=== PATIENT | female | born 1935 | race Caucasian/White ===

== ENCOUNTER 2016-09-25 10:31 | Inpatient (IN) ==
--- NOTE | 2016-09-25 11:04 | Emergency Department Note ---
Disposition Clinical Impression: Symptomatic anemia Disposition: Admitted As Inpatient Condition: Good Referrals: Jeffery Pastor MD [Primary Care Provider] - Forms: ED Satisfaction Letter Time of Disposition: 12:35 (dr padron obsv) Lower Extremity Injury HPI - General Chief Complaint: ED Extremity Injury, Lower Stated Complaint: right leg pain Time Seen by Provider: 09/25/16 10:38 Source: patient, EMS Mode of arrival: ambulatory Limitations: no limitations Nursing Notes Reviewed: Yes Vital Signs Reviewed: Yes - History of Present Illness HPI Narrative: Patient was seen 2 months ago when she tripped and fell and injured her leg she has had a large hematoma the leg during this period time she has actually been seen in the ER 3 times seen by the family physician 3 times and she has had CAT scans x-rays and Dopplers done all of which the negative she comes in today stating that she is short of breath tired and weak has no energy is having pain in the thigh has trouble weightbearing states it is swollen edematous with black and blue from the groin down Pt Subjective Complaint: thigh injury, leg injury Injury location: Left Leg, Left thigh Onset (ago): month(s) (2) Mechanism of Injury: fall Context: walking Place: home Pain Severity: moderate Pain Scale: 4 Improves with: nothing Worsens with: nothing Associated symptoms: Reports: able to partially bear weight, other (Large leg hematoma) - Related Data Home Medications Medication Instructions Recorded Confirmed Atenolol [Tenormin] 50 mg PO DAILY 09/25/16 09/25/16 Cholestyramine 4 gm PO BID 09/25/16 09/25/16 Famotidine [Heartburn Prevention] 20 mg PO BID 09/25/16 09/25/16 Flonase 50 mcg PO DAILY 09/25/16 09/25/16 Lisinopril [Zestril] 40 mg PO DAILY 09/25/16 09/25/16 Lovastatin [Altoprev] 40 mg PO HS 09/25/16 09/25/16 Omeprazole 40 mg PO DAILY 09/25/16 09/25/16 Tramadol HCl [Ultram] 50 mg PO QID PRN 09/25/16 09/25/16 Previous Rx's Medication Instructions Recorded Hydrocodone/Acetaminophen [[place] 1 tab PO QID PRN #12 tab 07/13/16 5-325 Tablet] Allergies Allergy/AdvReac Type Severity Reaction Status Date / Time codeine Allergy Rash Verified 07/13/16 14:42 Penicillins [PCN] Allergy Rash Verified 07/13/16 14:42 Sulfa (Sulfonamide Allergy Rash Verified 07/13/16 14:42 Antibiotics) All systems ED: reviewed and negative except as stated. Constitutional: Reports: weakness. Denies: fever, chills Eyes: Denies: vision change ENT ED: Denies: ear pain, congestion Cardiovascular: Denies: chest pain Respiratory: Denies: cough, dyspnea Gastrointestinal: Denies: abdominal pain, nausea Genitourinary: Denies: urgency, dysuria Musculoskeletal: Denies: back pain, neck pain Integumentary: Denies: rash Neurological: Reports: weakness. Denies: headache Psychiatric: Denies: anxiety Endocrine: Reports: fatigue Hematological/Lymphatic: Reports: easy bleeding, easy bruising Allergic/Immunologic: Denies: facial swelling Past Medical History - Past Medical History Attestation: Yes The following information was validated with the patient. Source: patient, old records reviewed, nursing notes reviewed Medical history: Reports: arthritis, GERD, hypertension Psychiatric history: Reports: no psych history - Social History Smoking Status: Former smoker Smokeless Tobacco Status: No Alcohol use: Reports: none Drug use: Reports: none Physical Exam - General Limitations: no limitations General appearance: alert, in no apparent distress - Head Head exam: atraumatic, normocephalic, normal inspection - Eye Eye exam: Present: normal appearance, PERRL, EOMI - ENT ENT exam: normal exam, normal oropharynx, mucous membranes moist, normal external ear exam - Neck Neck exam: Present: normal inspection, full ROM, trachea midline - Chest Chest inspection: Present: normal inspection, symmetric chest wall rise - Respiratory Respiratory exam: Present: normal lung sounds bilaterally - Cardiovascular Cardiovascular exam: Present: regular rate, normal rhythm, normal heart sounds - Abdominal Exam Abdominal exam: Present: soft, Non-Tender, normal bowel sounds - Expanded Upper Extremity Exam Shoulder exam: Present: normal inspection, full ROM Arm exam: Present: normal inspection, full ROM Elbow exam: Present: normal inspection, full ROM Forearm/Wrist exam: Present: normal inspection, full ROM Hand exam: Present: normal inspection, full ROM Vascular exam: Normal: capillary refill, radial pulse - Expanded Lower Extremity Exam Hip/Pelvis exam: Present: normal inspection (Of the left lower extremity there is no bruising or ecchymosis noted with the exception is 20 over the bruising above the ankle on the left otherwise all bruising is noted to the right leg), full ROM Upper leg exam: Present: normal inspection, full ROM 1 - Rectal bluish discoloration of the entire extremity with edema in comparison to the left lower extremity +2 dorsal pedal posterior tibial pulses full range of motion pitting edema lower Knee exam: Present: normal inspection, full ROM Lower leg exam: Present: normal inspection, full ROM Ankle exam: Present: normal inspection, full ROM Foot/toe exam: Present: normal inspection, full ROM Neurovascular/Tendon exam: Present: normal capillary refill, normal fine/light touch. Absent: motor deficit, sensory deficit, tendon deficit Gait: observed and normal - Back Exam Back exam: Present: normal inspection, full ROM - Neurological Exam Neurological exam: Present: alert, oriented X3, CN II-XII intact - Psychiatric Psychiatric exam: Present: normal affect, normal mood - Skin Skin exam: Present: warm, dry, intact, normal color Course Course Narrative: She was seen and examined laboratory data noted patient was then discussed with family as well as just Pastor as result of patient being symptomatic anemia will be admitted patient be admitted for observation to a surgeon - Reevaluation(s) Reevaluation #1: With cancer who has agreed for admission for observation for transfusion Vital Signs Temperature 98.1 F 09/25/16 10:33 Pulse Rate 64 09/25/16 10:33 Respiratory Rate 18 09/25/16 10:33 Blood Pressure 152/83 09/25/16 10:33 O2 Sat by Pulse Oximetry 99 09/25/16 10:33 Temperature 98.1 F 09/25/16 10:35 Pulse Rate 64 09/25/16 10:35 Respiratory Rate 18 09/25/16 10:35 Blood Pressure 152/83 09/25/16 10:35 O2 Sat by Pulse Oximetry 99 09/25/16 10:35 Oxygen Delivery Oxygen Delivery Room Air Extremity Injury, Lower - MDM Narrative Medical decision making narrative: internal bleeding in the thig with anemia - Lab Data Result diagrams: 09/25/16 11:17 09/25/16 11:17 Lab Results 09/25/16 09/25/16 09/25/16 Range/Units 11:17 11:17 11:17 WBC 7.4 (4.3-11.1) K/mcL RBC 2.10 L (3.82-4.97) M/mcL Hgb 7.8 L (11.5-15.4) g/dL Hct 24.0 L (35.3-44.9) % MCV 114.3 H (83.0-100.0) fL MCH 37.1 H (28.0-33.3) pg MCHC 32.5 (31.6-35.5) g/dL RDW 17.0 H (11.5-14.5) % Plt Count 202 (140-400) K/mcL MPV 10.4 (9.4-12.4) fL Immature Gran % 0.5 (0-4) % Seg Neutrophils % 70.9 % Lymphocytes % 15.9 % Monocytes % 11.4 % Eosinophils % 0.9 % Basophils % 0.4 % Neutrophils # 5.3 (1.6-8.9) K/mcL Lymphocytes # 1.2 (0.6-4.6) K/mcL Monocytes # 0.9 (0.0-1.3) K/mcL Eosinophils # 0.1 (0.0-0.6) K/mcL Basophils # 0.0 (0.0-0.2) K/mcL Platelet Estimate Normal (Normal) Anisocytosis 1+ A (Not Present) Macrocytosis Present A (Not Present) PT 10.7 (9.4-12.1) Seconds INR 1.0 APTT 27.0 (26.0-36.0) Seconds Sodium 142 (136-145) mEq/L Potassium 4.1 (3.5-4.5) mEq/L Chloride 112 H (98-109) mEq/L Carbon Dioxide 23 (19-29) mEq/L BUN 15 (7-20) mg/dL Creatinine 0.66 (0.57-1.11) mg/dL Est GFR ( Amer) > 60 (> 60) Est GFR (Non-Af Amer) > 60 (> 60) BUN/Creatinine Ratio 23 (6-26) Glucose 95 (70-99) mg/dL Calculated Osmolality 295 (280-300) Calcium 8.9 (8.6-10.8) mg/dL Critical Care Time Critical Care Time: No
[2016-09-25 11:23] LABS: Basophils % 0.4 %; Eosinophils # 0.1 K/mcL (0.0-0.6); Eosinophils % 0.9 %; Hemoglobin 7.8 g/dL (11.5-15.4); Immature Granulocytes % 0.5 % (0-4); Lymphocytes # 1.2 K/mcL (0.6-4.6); Lymphocytes % 15.9 %; Mean Corpuscular HGB Conc 32.5 g/dL (31.6-35.5); Mean Corpuscular Hemoglobin 37.1 pg (28.0-33.3); Mean Corpuscular Volume 114.3 fL (83.0-100.0); Mean Platelet Volume 10.4 fL (9.4-12.4); Monocytes # 0.9 K/mcL (0.0-1.3); Monocytes % 11.4 %; Neutrophils # 5.3 K/mcL (1.6-8.9); Platelet Count 202 K/mcL (140-400); Segmented Neutrophils % 70.9 %
[2016-09-25 11:30] LABS: Prothrombin Time 10.7 Seconds (9.4-12.1)
[2016-09-25 11:37] LABS: BUN/Creatinine Ratio 23 (6-26); Blood Urea Nitrogen 15 mg/dL (7-20); Calcium 8.9 mg/dL (8.6-10.8); Carbon Dioxide 23 mEq/L (19-29); Chloride 112 mEq/L (98-109); Glucose 95 mg/dL (70-99); Osmolality,Calculated 295 (280-300); Potassium 4.1 mEq/L (3.5-4.5); Sodium 142 mEq/L (136-145); eGFR For African Americans > 60 (> 60); eGFR For Non-African Americans > 60 (> 60)
[2016-09-25 11:43] LABS: Anisocytosis 1+ (Not Present); Macrocytosis Present (Not Present); Platelet Estimate Normal (Normal)
[2016-09-25] MEDS ORDERED: Naloxone 0.4 MG/ML INJ IVP PRN (13:22)
[2016-09-25] MEDS: 0.9 % Sodium Chloride 1,000 ML IVC SCH (14:05)
[2016-09-25] MEDS: Furosemide 20 MG/2 ML VIAL IVP SCH ×2 (18:08→22:34)
[2016-09-25] MEDS ORDERED: Furosemide 20 MG/2 ML VIAL IVP SCH (21:00)
[2016-09-25] MEDS: Cholestyramine 4 GM POWD.PACK PO SCH (22:34)
[2016-09-25] MEDS: *HR* HYDROcodone/Acet 5/325 mg TABLET PO PRN (22:41)
[2016-09-26] MEDS: 0.9 % Sodium Chloride 1,000 ML IVC SCH (05:47)
[2016-09-26 07:37] LABS: Basophils % 0.5 %; Eosinophils # 0.2 K/mcL (0.0-0.6); Eosinophils % 2.7 %; Hematocrit 26.4 % (35.3-44.9); Hemoglobin 8.7 g/dL (11.5-15.4); Immature Granulocytes % 0.5 % (0-4); Lymphocytes # 1.8 K/mcL (0.6-4.6); Mean Corpuscular Hemoglobin 36.1 pg (28.0-33.3); Mean Corpuscular Volume 109.5 fL (83.0-100.0); Mean Platelet Volume 10.5 fL (9.4-12.4); Monocytes # 0.8 K/mcL (0.0-1.3); Monocytes % 12.8 %; Neutrophils # 3.2 K/mcL (1.6-8.9); Platelet Count 191 K/mcL (140-400); Red Blood Count 2.41 M/mcL (3.82-4.97); Red Cell Distribution Width 18.8 % (11.5-14.5); Segmented Neutrophils % 53.5 %
[2016-09-26 07:50] LABS: Activated Partial Thrombo Time 28.2 Seconds (26.0-36.0)
[2016-09-26] MEDS: *HR* HYDROcodone/Acet 5/325 mg TABLET PO PRN ×2 (08:30→14:31)
[2016-09-26 08:58] LABS: BUN/Creatinine Ratio 16 (6-26); Blood Urea Nitrogen 10 mg/dL (7-20); Calcium 9.2 mg/dL (8.6-10.8); Carbon Dioxide 26 mEq/L (19-29); Chloride 109 mEq/L (98-109); Glucose 102 mg/dL (70-99); Osmolality,Calculated 293 (280-300); Potassium 4.1 mEq/L (3.5-4.5); Sodium 142 mEq/L (136-145); eGFR For African Americans > 60 (> 60); eGFR For Non-African Americans > 60 (> 60)
[2016-09-26] MEDS ORDERED: *HR* Promethazine 25 MG/ML VIAL IVP PRN (09:19)
[2016-09-26] MEDS: *HR* Morphine 2 MG/ML SYRINGE IVP PRN ×2 (09:39→16:26)
[2016-09-26] MEDS: PredniSONE 20 MG TABLET PO SCH ×2 (09:59→16:37)
[2016-09-26] MEDS: Lisinopril 20 MG TABLET PO SCH (09:59)
[2016-09-26] MEDS: Cholestyramine 4 GM POWD.PACK PO SCH ×3 (10:01→21:46)
[2016-09-26] MEDS: Ketorolac 30 MG/ML VIAL IVP SCH ×2 (11:50→17:40)
--- NOTE | 2016-09-26 12:42 | Internal Med History&Physical ---
Date of Encounter: 09/26/16 Time of Encounter: 12:26 Assessment and Plan (1) Intractable pain Current visit: Yes Status: Acute Pain was not controlled with oral medication no [place] or tramadol. Morphine had to be ordered every 4 hours as needed for pain that does not control we might have to increase the frequency. Also on Toradol IV. Prednisone orally will change her from observation to inpatient admission follow-up on the rehabilitation consultation (2) Symptomatic anemia Current visit: Yes Status: Acute Unclear why her hemoglobin was below 8. Received one unit of packed red blood cells and her hemoglobin came up to 8.7 but there is a concern she might be bleeding into that time to repeat CBC, her INR was okay. (3) Hypertension Current visit: Yes Status: Acute Blood pressure higher with pain went up to 202/83 continue the clonidine Lasix lisinopril. Qualifiers: Hypertension type: essential hypertension Qualified Code(s): I10 - Essential (primary) hypertension (4) Arthritis Current visit: Yes Status: Chronic Significant knee pain bilaterally improving also with the Toradol (5) Thigh injury Current visit: Yes Status: Acute Right thigh is bruised and swollen continue treat pain Qualifiers: Encounter type: subsequent encounter Laterality: right Qualified Code(s) : S79.921D - Unspecified injury of right thigh, subsequent encounter Internal Medicine - H&P: HPI Chief complaint: Severe right leg pain Admitted From: Emergency Dept Plans for Post Hospital Care: Transfer Inp Rehab Fac History of present illness: Ms. Joseph is a 80 year old female with a history of fall couple months ago and right hip pain and bruising. Several visits to the emergency room and the doctor's office for patient. Family at after the initial fall they did x-rays that show fracture about 2-3 weeks later she started having a lot of bruising and swelling. She was told that it was because she bled deeply and it take this long for the blood to reach the surface. She was able to walk the dog and regular activity before she fell. Since the fall she is mainly had these walker. Yesterday morning when she got up she could not bear weight on that right leg. So painful it was more than a 10 out 10. He came in the emergency room and was admitted for intractable pain and for symptomatic anemia. She sees Dr. Pastor who is given her tramadol past for chronic pain. Initially tramadol and [place] was ordered but these do not control the pain her blood stem from 10. I independently write for Toradol IV morphine every 4 hours when necessary pain and prednisone 20 mg by mouth twice a day. This regimen she reports the pain went down to a 7 out of 10 for a brief period of time. Blood pressure did go up to 202/83 at the time she is complaining of severe pain. He believes it is easing up and would like to stay on this regimen to see if she can become more ambulatory. Currently she cannot bear weight without the IV morphine. He continues to ease up with the rectus regimen and she is willing to do rehabilitation. I discussed with her about compartmental syndrome, she reports with this regimen the tingling has improved though she did like to hold off on being transferred to [facility] unless she gets significantly worse. Her fatigue seemed to improve steadily with 1 unit of packed red blood cells that brought her hemoglobin from 7.8 up to 8.7. I stressed with bed management. She has also had weakness fatigue headache dizziness nausea physical constipated which her symptoms are slightly improved. Chest pain shortness breath vomiting diarrhea abdominal plain she has not noticed any blood rest of the review of systems negative suction mention having a slight right hearing loss which is chronic. Her questions addressed her concerns. We will change her from observation and in patient status. Discussed repeating a Doppler that she had one a week ago and she is not swelling in the ankles source less likely be a blood clot. The Doppler week ago was negative. Past Med Surg Social Fam HX - Past Medical History Medical history: arthritis (Worse in the bilateral knees), GERD, hypertension, other (IBS, thigh injury, anemia) Psychiatric history: no psych history - Past Surgical History Surgical History: appendectomy, cholecystectomy, KELIN/BSO, other (Bladder repair , hiatal hernia repair, lumbar laminectomy, colonoscopy) - Social History Smoking Status: Former smoker Smokeless Tobacco Status: No Alcohol use: occasionally (She reports having a glass of wine every quarter, explained my concerns) Drug use: other (Coffee 2 cups a dayBecause caffeine is a stimulant and makes one feel a boost of energy by tapping into ones reserve energy, it can lead to anxiety and panic attacks. When used routiely, it interferes with deep sleep, so the reserve energy isn't being replaced effectively which leads to tiredness , depression, higher risk of infection. I recommend patients gives up daily use. ) Current living situation: Home - Independent Activity Level: Uses cane/walker - Family History Mother Living Status: (Kidney issue) Father Living Status: (Unsure reason) Internal Medicine - H&P: Meds Hydrocodone/Acetaminophen [[place] 5-325 Tablet] 1 tab PO QID PRN #12 tab [Rx] Atenolol [Tenormin] 50 mg PO DAILY 09/25/16 [History] Cholestyramine 4 gm PO BID 09/25/16 [History] Famotidine [Heartburn Prevention] 20 mg PO BID 09/25/16 [History] Flonase 50 mcg PO DAILY 09/25/16 [History] Lisinopril [Zestril] 40 mg PO DAILY 09/25/16 [History] Lovastatin [Altoprev] 40 mg PO HS 09/25/16 [History] Omeprazole 40 mg PO DAILY 09/25/16 [History] Tramadol HCl [Ultram] 50 mg PO QID PRN 09/25/16 [History] Allergies codeine Allergy (Verified 07/13/16 14:42) Rash Penicillins [PCN] Allergy (Verified 07/13/16 14:42) Rash Sulfa (Sulfonamide Antibiotics) Allergy (Verified 07/13/16 14:42) Rash All Systems PM: A 10-system review of systems was performed and is negative for pertinent findings except as documented above in the HPI. - Constitutional Vitals: Temp Pulse Resp BP Pulse Ox 98.4 F 72 16 202/83 97 09/26/16 10:19 09/26/16 10:19 09/26/16 10:19 09/26/16 10:19 09/26/16 10:19 - Head Head exam: Present: atraumatic, normocephalic - Eye Eye exam: Present: PERRL, conjuntiva pink, sclera anicteric Pupils: Present: PERRL - Neck Neck exam general surgery: Present: supple, trachea midline. Absent: lymphadenopathy - Respiratory Respiratory exam: Present: CTAB. Absent: accessory muscle use, rales, rhonchi, wheezes - Cardiovascular Cardiovascular exam: Present: RRR, +S1, +S2. Absent: diastolic murmur, gallop, rubs, systolic murmur - GI/Abdominal GI/Abdominal exam: Present: normal bowel sounds, soft, no peritoneal signs. Absent: distended, tenderness - Extremities Exam Extremities exam: Absent: cyanotic, pedal edema Additional comments: Right lower extremity has significant bruising from the hip only down to the physician her thigh was tight around the bruising area. Ankle was not swollen there was no redness or pus, she had a pulse by Doppler. She reports normal sensation - Neurological Exam Neurological exam: Present: CN II-XII intact, oriented X3, no focal deficits. Absent: facial droop, speech deficit - Skin Skin exam: Present: dry, intact Internal Med - H&P Results - Labs CBC & Chem 7: 09/26/16 07:23 09/26/16 07:23 Labs: Short CBC 09/26/16 Range/Units 07:23 WBC 6.0 (4.3-11.1) K/mcL Hgb 8.7 L (11.5-15.4) g/dL Hct 26.4 L (35.3-44.9) % Plt Count 191 (140-400) K/mcL Neutrophils # 3.2 (1.6-8.9) K/mcL BMP 09/26/16 07:23 Sodium 142 Potassium 4.1 Chloride 109 Carbon Dioxide 26 BUN 10 Creatinine 0.63 Glucose 102 H Calcium 9.2
[2016-09-26 13:44] LABS: Folate 13.5 ng/mL (7.0-31.4)
[2016-09-26] MEDS: Fluticasone Propionate Nasal 50 MCG/SPRAY BOTTLE NS SCH (15:14)
[2016-09-26] MEDS ORDERED: Ketorolac 30 MG/ML VIAL IVP SCH (16:00)
[2016-09-26] MEDS ORDERED: *HR* LORazepam 2 MG/ML VIAL IVP PRN (17:32)
[2016-09-26] MEDS: *HR* LORazepam 2 MG/ML VIAL IVP PRN (21:49)
[2016-09-27] MEDS: Ketorolac 30 MG/ML VIAL IVP SCH ×3 (00:45→18:44)
[2016-09-27 06:53] LABS: Basophils % 0.1 %; Hematocrit 22.4 % (35.3-44.9); Hemoglobin 7.5 g/dL (11.5-15.4); Immature Granulocytes % 0.6 % (0-4); Lymphocytes % 15.9 %; Mean Corpuscular HGB Conc 33.5 g/dL (31.6-35.5); Mean Corpuscular Hemoglobin 36.6 pg (28.0-33.3); Mean Corpuscular Volume 109.3 fL (83.0-100.0); Monocytes % 10.8 %; Neutrophils # 6.6 K/mcL (1.6-8.9); Platelet Count 182 K/mcL (140-400); Red Blood Count 2.05 M/mcL (3.82-4.97); Red Cell Distribution Width 18.1 % (11.5-14.5); Segmented Neutrophils % 72.6 %
[2016-09-27 06:55] LABS: Lymphocytes # 1.5 K/mcL (0.6-4.6)
[2016-09-27 07:05] LABS: BUN/Creatinine Ratio 21 (6-26); Blood Urea Nitrogen 14 mg/dL (7-20); Calcium 9.1 mg/dL (8.6-10.8); Carbon Dioxide 23 mEq/L (19-29); Chloride 110 mEq/L (98-109); Glucose 133 mg/dL (70-99); Osmolality,Calculated 292 (280-300); Potassium 4.4 mEq/L (3.5-4.5); Sodium 140 mEq/L (136-145); eGFR For African Americans > 60 (> 60); eGFR For Non-African Americans > 60 (> 60)
[2016-09-27] MEDS: PredniSONE 20 MG TABLET PO SCH ×2 (08:54→18:56)
[2016-09-27] MEDS: Lisinopril 20 MG TABLET PO SCH (08:54)
[2016-09-27] MEDS: Cholestyramine 4 GM POWD.PACK PO SCH (09:00)
[2016-09-27] MEDS: Fluticasone Propionate Nasal 50 MCG/SPRAY BOTTLE NS SCH (09:00)
[2016-09-27] MEDS: *HR* LORazepam 2 MG/ML VIAL IVP PRN (12:50)
--- NOTE | 2016-09-27 17:42 | Discharge Summary ---
Date of Encounter: 09/27/16 Time of Encounter: 17:40 - Discharge Diagnosis (1) Thigh injury Priority: Primary Status: Acute Comments: The injury and up showing a fracture also right vastus lateralis hematoma there as 33 x 12 x 5.6 cm also showed a posterior tibial vein acute deep venous thrombosis measuring 5 cm Qualifiers: Encounter type: subsequent encounter Laterality: right Qualified Code(s) : S79.921D - Unspecified injury of right thigh, subsequent encounter (2) Intractable pain Priority: Primary Status: Acute Comments: Patient is to need morphine for pain control also on Toradol. Ended up getting a CT scan that showed evulsion fracture of the greater trochanter and potential association of occult intertrigo trochanteric extension. (3) Symptomatic anemia Priority: Primary Status: Acute Comments: Still not sure to what hemoglobin is dropping potential bleed because of her complexity, I callled [facility] at the patient's request they will continue workup. (4) Hypertension Priority: Primary Status: Acute Comments: Her blood pressure still been going up high without the pain medicine systolic blood pressure above 200 Qualifiers: Hypertension type: essential hypertension Qualified Code(s): I10 - Essential (primary) hypertension (5) Arthritis Priority: Secondary Status: Chronic Comments: Controlled pain with Toradol - Discharge Medications Home Medications: Hydrocodone/Acetaminophen [[place] 5-325 Tablet] 1 tab PO QID PRN #12 tab [Rx] Atenolol [Tenormin] 50 mg PO DAILY 09/25/16 [History] Cholestyramine 4 gm PO BID 09/25/16 [History] Famotidine [Heartburn Prevention] 20 mg PO BID 09/25/16 [History] Flonase 50 mcg PO DAILY 09/25/16 [History] Lisinopril [Zestril] 40 mg PO DAILY 09/25/16 [History] Lovastatin [Altoprev] 40 mg PO HS 09/25/16 [History] Omeprazole 40 mg PO DAILY 09/25/16 [History] Tramadol HCl [Ultram] 50 mg PO QID PRN 09/25/16 [History] Allergies/Adverse Reactions: Allergies codeine Allergy (Verified 07/13/16 14:42) Rash Penicillins [PCN] Allergy (Verified 07/13/16 14:42) Rash Sulfa (Sulfonamide Antibiotics) Allergy (Verified 07/13/16 14:42) Rash Procedures/tests Complete & Pending: Procedures Performed prior 72 hours Category Date Time Status CT femur RT w con [CT] Stat Cat Scan 09/27/16 13:[address] lower leg RT w con [CT] Stat Cat Scan 09/27/16 11:[address] pelvis w iv no oral [CT] Stat Cat Scan 09/27/16 11:19 Completed Date of admission: 09/26/16 12:53 Primary care physician: Jeffery Pastor MD Discharging clinician: Benjamín Padilla Anticipated date of discharge: 09/27/16 - Patient Status Disposition: Transfer Other Condition: Good Functional capacity at discharge: bed bound (Up with assistance) Overall status at discharge: patient is not back to baseline - Discharge Instructions Follow Up With: Jeffery Pastor MD [Primary Care Provider] - 1 week - Diet and Activity Activity: increase activity as tolerated Diet: advance to your usual diet (Patient will be transferred by ambulance with IV access to [facility] - Dr. Bruner) Hospital course: Ms. Joseph is a 80 year old female presented to emergency room with intractable pain. The history was that she felt about 2 months earlier had right hip pain and bruising. Initial CT scan did not show a fracture so the possibility is occult fracture. Splinted family how these can show up later as there is more separation. Dr. Bruner initially wanted more information so I ordered a CT scan of the pelvis and the right lower extremity impressions were no avulsion fracture of the right greater trochanter with displacement superiorly 1.2 cm. Posterior postsurgical changes of the fusion of L4-5. Also from the femur point of view the fracture is often associated with occult intertrochanteric extension. The orthopedist agreed to accept a consultation the patient is transferred up to amount, less than A we will order an MRI. It also showed a right vastus lateralis hematoma 33 x 12 x 5.6 cm. Also showed a posterior tibial vein acute deep venous thrombosis measuring 5 cm in length. The hemoglobin initially was 7.8 she received 1 unit of packed red blood cells and went up to 8.7. The next day was dropped back down to 7.5 there is concern where this might be going that. Daily the patient had had previous surgery at [facility] so she wanted to be transferred up to their system and [facility]. All this was explained to the family cleaning the process. Questions answered concerns addressed. - Time Spent with Patient Total time spent providing and/or coordinating discharge services: Greater than 30 minutes (Several conversations with family, 2 conversations with the hospitalist and 1 with an orthopedist) - Constitutional Vitals: Temp Pulse Resp BP Pulse Ox 97.8 F 75 16 187/67 99 09/27/16 16:39 09/27/16 16:39 09/27/16 16:39 09/27/16 16:39 09/27/16 16:39 Exam: General: Alert and oriented, no acute distress Lungs: Clear to auscultation bilaterally without wheezing or crackles Heart: Regular rate and rythms without murmer or rubs Abdomen: Soft, nontender, Extremities: Right lower leg had bruising from that thigh down to the walker - VTE Reasons for not Prescribing Prophylaxis: Medical contraindication
[2016-09-27 18:22] VITALS: BP 139/80
[2016-09-27] MEDS: *HR* Morphine 2 MG/ML SYRINGE IVP PRN (18:44)
== END 2016-09-27 19:10 | disposition short-term general hospital (02) | DRG 536 ==
LOC: EMEROOPIK 10:31 → INPPIK 10:31
PROVIDERS: ADMIT Internal Medicine; ATTEND Internal Medicine

== ENCOUNTER 2016-09-30 20:18 | Inpatient (IN) ==
[2016-09-30] MEDS: *HR* Enoxaparin 80 MG/0.8 ML SYRINGE SQ SCH (22:26)
[2016-09-30] MEDS: *HR* HYDROcodone/Acet 5/325 mg TABLET PO PRN (22:27)
[2016-10-01] MEDS: Lisinopril 20 MG TABLET PO SCH ×2 (04:20→06:16)
[2016-10-01] MEDS: Acetaminophen 325 MG TABLET PO PRN (04:21)
[2016-10-01] MEDS: Cholestyramine 4 GM POWD.PACK PO SCH ×2 (06:07→15:27)
[2016-10-01 06:40] LABS: Basophils % 0.6 %; Eosinophils # 0.3 K/mcL (0.0-0.6); Eosinophils % 5.6 %; Hematocrit 29.5 % (35.3-44.9); Hemoglobin 9.7 g/dL (11.5-15.4); Immature Granulocytes % 0.6 % (0-4); Lymphocytes # 1.6 K/mcL (0.6-4.6); Lymphocytes % 29.7 %; Mean Corpuscular HGB Conc 32.9 g/dL (31.6-35.5); Mean Corpuscular Hemoglobin 35.3 pg (28.0-33.3); Mean Corpuscular Volume 107.3 fL (83.0-100.0); Mean Platelet Volume 11.2 fL (9.4-12.4); Monocytes # 0.9 K/mcL (0.0-1.3); Monocytes % 16.2 %; Neutrophils # 2.6 K/mcL (1.6-8.9); Platelet Count 183 K/mcL (140-400); Red Blood Count 2.75 M/mcL (3.82-4.97); Red Cell Distribution Width 18.7 % (11.5-14.5); Segmented Neutrophils % 47.3 %
[2016-10-01 06:50] LABS: INR 1.1; Prothrombin Time 11.6 Seconds (9.4-12.1)
[2016-10-01 07:03] LABS: BUN/Creatinine Ratio 27 (6-26); Blood Urea Nitrogen 18 mg/dL (7-20); Calcium 8.5 mg/dL (8.6-10.8); Carbon Dioxide 20 mEq/L (19-29); Chloride 113 mEq/L (98-109); Glucose 83 mg/dL (70-99); Osmolality,Calculated 295 (280-300); Potassium 4.2 mEq/L (3.5-4.5); Sodium 142 mEq/L (136-145); eGFR For African Americans > 60 (> 60); eGFR For Non-African Americans > 60 (> 60)
[2016-10-01] MEDS ORDERED: PredniSONE 20 MG TABLET PO SCH (09:00)
[2016-10-01] MEDS: Fluticasone Propionate Nasal 50 MCG/SPRAY BOTTLE NS SCH (09:09)
[2016-10-01] MEDS: *HR* Enoxaparin 80 MG/0.8 ML SYRINGE SQ SCH ×2 (09:25→20:58)
[2016-10-01] MEDS: *HR* HYDROcodone/Acet 5/325 mg TABLET PO PRN ×2 (13:07→20:53)
--- NOTE | 2016-10-01 16:39 | Internal Med History&Physical ---
Date of Encounter: 10/01/16 Time of Encounter: 15:35 Assessment and Plan (1) Femur fracture, right Current visit: Yes Status: Acute She will continue with PT and OT intervention. Qualifiers: Encounter type: subsequent encounter Fracture type: closed Fracture morphology: unspecified fracture morphology Fracture healing: with routine healing Qualified Code(s): S72.301D - Unspecified fracture of shaft of right femur, subsequent encounter for closed fracture with routine healing (2) Macrocytic anemia Current visit: Yes Status: Acute Her B12 and folate were normal in 09/26/2016. Repeat labs in a.m. (3) Hypertension Current visit: No Status: Chronic Continue Norvasc, lisinopril, and Lopressor. Qualifiers: Hypertension type: essential hypertension Qualified Code(s): I10 - Essential (primary) hypertension Internal Medicine - H&P: HPI Chief complaint: Fracture Admitted From: Hospital to Hospital Transfer Plans for Post Hospital Care: Home History of present illness: Ms. Joseph is a 80 year old female who is admitted to swing bed after a [facility] stay for evaluation for right femur fracture. She had a fall approximately 2 months ago and had increasing pain in the right hip/leg. She was admitted to [facility] September 26 for intractable pain in her right hip. The fracture was found and she was sent to [facility]. She was treated nonoperatively because of the age of the fracture. She was admitted to [facility] September 30 for swing bed stay for rehabilitation therapy prior to returning to independent living. Her musk skeletal history significant for DJD. She had lumbar laminectomy with vertebral fusion approximately [address] [facility]. She denies gout or other bone joint or muscle disorders. Past Med Surg Social Fam HX - Past Medical History Medical history: arthritis, DVT, GERD, hypertension, other Psychiatric history: no psych history - Past Surgical History Surgical History: appendectomy, cholecystectomy, KELIN/BSO, other - Social History Smoking Status: Former smoker Smokeless Tobacco Status: No Alcohol use: occasionally Drug use: other - Family History Mother Living Status: (Kidney issue) Father Living Status: Internal Medicine - H&P: Meds Hydrocodone/Acetaminophen [Hershey 5-325 Tablet] 1 tab PO QID PRN #12 tab [Rx] Atenolol [Tenormin] 50 mg PO DAILY 09/25/16 [History] Cholestyramine 4 gm PO BID 09/25/16 [History] Famotidine [Heartburn Prevention] 20 mg PO BID 09/25/16 [History] Flonase 50 mcg PO DAILY 09/25/16 [History] Lisinopril [Zestril] 40 mg PO DAILY 09/25/16 [History] Lovastatin [Altoprev] 40 mg PO HS 09/25/16 [History] Omeprazole 40 mg PO DAILY 09/25/16 [History] Tramadol HCl [Ultram] 50 mg PO QID PRN 09/25/16 [History] Allergies codeine Allergy (Verified 07/13/16 14:42) Rash Penicillins [PCN] Allergy (Verified 07/13/16 14:42) Rash Sulfa (Sulfonamide Antibiotics) Allergy (Verified 07/13/16 14:42) Rash All Systems PM: A 10-system review of systems was performed and is negative for pertinent findings except as documented above in the HPI. Review of systems: Gen.: She states her weight has been stable the past 6 months Cardiovascular: She was told she had a DVT in her right leg during her recent [facility] stay. She has not had previous DVT. She has a history of hypertension but denies [place] heart failure or angina. She thinks she had an exercise stress test approximately 2011. Respiratory: She smoked from approximately age [age] never exceeding one third pack per day. She denies chronic lung disease GI: She has had cholecystectomy but denies disorders of her liver or exocrine pancreas : She denies hematuria dysuria or kidney stones Neurologic: She denies large distribution strokes or seizures Endocrine: She has hyperlipidemia but denies diabetes or thyroid disease Hematology/oncology: She has anemia but denies internal malignancies or other blood disorders Psychiatric: She has had anxiety and depression in the past but has not received treatment recently. She denies other mental health issues Musk skeletal: As per history of present illness - Constitutional Vitals: Temp Pulse Resp BP Pulse Ox 98.6 F 70 16 167/74 96 10/01/16 16:09 10/01/16 16:09 10/01/16 16:09 10/01/16 16:09 10/01/16 16:09 Exam: Gen.: She is a well-developed well-nourished female who appears in no acute distress at present time. HEENT: Head is atraumatic and normocephalic. Eyes: EOMI. There is no scleral icterus. Mouth: Mucosa is moist. Neck: Supple and nontender. There is no thyromegaly or adenopathy noted. Heart: Regular without murmurs gallops or ectopics. Lungs: No wheezes or crackles are heard. Abdomen: Soft and nontender. No masses or guarding are noted. Extremities: There is no cyanosis edema or clubbing noted of the left leg. The right leg shows significant discoloration with ecchymosis extending the entire length of the leg. It appears to be subacute to chronic in age. She has an elastic wrap from the knee down to the foot on the right leg. She has mild DJD changes of her hands. Neurologic: Mental status: She is talkative and a good historian. Cranial nerves: Smile is symmetric. Forehead wrinkles bilaterally. Tongue protrudes midline. EOMI. Motor: There is no pronator drift. Cerebellar: Finger to nose is intact bilaterally. Skin: Warm and dry Internal Med - H&P Results - Labs CBC & Chem 7: 09/30/16 05:45 09/30/16 05:45 Labs: Short CBC 09/30/16 Range/Units 05:45 WBC 5.4 (4.3-11.1) K/mcL Hgb 9.7 L D (11.5-15.4) g/dL Hct 29.5 L (35.3-44.9) % Plt Count 183 (140-400) K/mcL Neutrophils # 2.6 (1.6-8.9) K/mcL BMP 09/30/16 05:45 Sodium 142 Potassium 4.2 Chloride 113 H Carbon Dioxide 20 BUN 18 Creatinine 0.66 Glucose 83 Calcium 8.5 L - VTE Documentation of Mechanical Device: Graduated compression elastic hosiery
[2016-10-01] MEDS ORDERED: *HR* Warfarin 5 MG TABLET PO SCH (18:00)
[2016-10-02] MEDS: *HR* HYDROcodone/Acet 5/325 mg TABLET PO PRN ×3 (01:58→18:18)
[2016-10-02] MEDS: Cholestyramine 4 GM POWD.PACK PO SCH ×2 (06:51→15:39)
[2016-10-02 07:02] LABS: INR 1.9; Prothrombin Time 21.4 Seconds (9.4-12.1)
[2016-10-02 07:11] LABS: Alanine Aminotransferase 19 Units/L (0-55); Albumin/Globulin Ratio 1.5 (1.1-2.2); Alkaline Phosphatase 38 Units/L (38-126); Aspartate Amino Transferase 24 Units/L (5-34); BUN/Creatinine Ratio 21 (6-26); Bilirubin,Total 0.8 mg/dL (0.2-1.2); Blood Urea Nitrogen 13 mg/dL (7-20); Calcium 8.5 mg/dL (8.6-10.8); Carbon Dioxide 21 mEq/L (19-29); Chloride 112 mEq/L (98-109); Glucose 79 mg/dL (70-99); Osmolality,Calculated 291 (280-300); Sodium 141 mEq/L (136-145); eGFR For African Americans > 60 (> 60); eGFR For Non-African Americans > 60 (> 60)
[2016-10-02] MEDS: PredniSONE 20 MG TABLET PO SCH (09:25)
[2016-10-02] MEDS: Lisinopril 20 MG TABLET PO SCH (09:25)
[2016-10-02] MEDS: Fluticasone Propionate Nasal 50 MCG/SPRAY BOTTLE NS SCH (09:27)
[2016-10-02] MEDS: *HR* Enoxaparin 80 MG/0.8 ML SYRINGE SQ SCH (09:30)
[2016-10-02] MEDS ORDERED: MOM Conc 10 ML UD.LIQ PO PRN (13:42)
[2016-10-02 14:25] LABS: % Iron Saturation 34 % (15-50); Iron 99 mcg/dL (50-170); Transferrin 211 mg/dL (180-382)
[2016-10-02 14:47] LABS: Ferritin 90 ng/ml (5-204)
--- NOTE | 2016-10-02 14:48 | Internal Med Progress Note ---
Date of Encounter: 10/02/16 Time of Encounter: 14:40 - Assessment and plan (1) Femur fracture, right Current Visit: Yes Status: Acute Assessment and plan: Continue with PT and OT. I will order FRANKIE currie to lessen edema Qualifiers: Encounter type: subsequent encounter Fracture type: closed Fracture morphology: unspecified fracture morphology Fracture healing: with routine healing Qualified Code(s): S72.301D - Unspecified fracture of shaft of right femur, subsequent encounter for closed fracture with routine healing (2) Macrocytic anemia Current Visit: Yes Status: Acute Assessment and plan: October 02. B12 and folate were normal 09/26/2016. Iron profile is unremarkable. TSH was normal at 0.932 on 11/27/2014. (3) Hypertension Current Visit: No Status: Chronic Assessment and plan: Continue Norvasc lisinopril and Lopressor. I will increase Hytrin to 2 mg at bedtime. Qualifiers: Hypertension type: essential hypertension Qualified Code(s): I10 - Essential (primary) hypertension (4) DVT (deep venous thrombosis) Current Visit: Yes Status: Acute Assessment and plan: October 02. She reports this was diagnosed during her recent [place] hospitalization. Her pro time is now therapeutic. We will discontinue Lovenox Qualifiers: DVT location: lower extremity Affected thrombotic vein of extremity: unspecified vein of extremity Laterality: right Chronicity: acute Qualified Code(s): I82.401 - Acute embolism and thrombosis of unspecified deep veins of right lower extremity - Subjective Interval history: October 02. She has no new complaints except constipation. - Constitutional Vitals: Temp Pulse Resp BP Pulse Ox 98.1 F 60 14 151/54 100 10/02/16 06:58 10/02/16 14:08 10/02/16 14:08 10/02/16 14:08 10/02/16 14:08 Exam: She is resting comfortably in bed. Her right lower leg is wrapped in elastic wrap. Her affect is bright and cheerful. There is no significant edema of her left lower leg. I reviewed her medications and lab results. Internal Medicine: Result - Labs CBC & Chem 7: 09/30/16 05:45 10/02/16 06:24 Labs: BMP 10/02/16 06:24 Sodium 141 Potassium 4.0 Chloride 112 H Carbon Dioxide 21 BUN 13 Creatinine 0.62 Glucose 79 Calcium 8.5 L Liver Function 10/02/16 Range/Units 06:24 Total Bilirubin 0.8 (0.2-1.2) mg/dL AST 24 (5-34) Units/L ALT 19 (0-55) Units/L Alkaline Phosphatase 38 (38-126) Units/L Albumin 3.0 L (3.5-5.0) g/dL - ABG Interpretation ABG results: PT/INR, D-dimer PT 21.4 Seconds (9.4-12.1) H D 10/02/16 06:24 - VTE Documentation of Mechanical Device: Graduated compression elastic hosiery Consult Discharge Plan - Plan Referrals: Jeffery Pastor MD [Primary Care Provider] - 1 week
[2016-10-02] MEDS: *HR* Warfarin 2 MG TABLET PO SCH (17:59)
[2016-10-03] MEDS: Cholestyramine 4 GM POWD.PACK PO SCH ×2 (07:28→17:35)
[2016-10-03] MEDS: Lisinopril 20 MG TABLET PO SCH (09:55)
[2016-10-03] MEDS: PredniSONE 20 MG TABLET PO SCH (09:56)
[2016-10-03] MEDS: Fluticasone Propionate Nasal 50 MCG/SPRAY BOTTLE NS SCH (10:01)
[2016-10-03] MEDS: *HR* HYDROcodone/Acet 5/325 mg TABLET PO PRN ×2 (10:03→22:09)
[2016-10-03] MEDS: *HR* Warfarin 2 MG TABLET PO SCH (17:34)
[2016-10-04] MEDS: Cholestyramine 4 GM POWD.PACK PO SCH ×2 (07:11→18:00)
[2016-10-04] MEDS: Lisinopril 20 MG TABLET PO SCH (09:09)
[2016-10-04] MEDS: PredniSONE 20 MG TABLET PO SCH (09:09)
[2016-10-04] MEDS: Fluticasone Propionate Nasal 50 MCG/SPRAY BOTTLE NS SCH (09:10)
[2016-10-04] MEDS: *HR* HYDROcodone/Acet 5/325 mg TABLET PO PRN ×2 (09:15→20:34)
[2016-10-04] MEDS: Acetaminophen 325 MG TABLET PO PRN (12:57)
[2016-10-04] MEDS: *HR* Warfarin 2 MG TABLET PO SCH (18:35)
[2016-10-05] MEDS: *HR* HYDROcodone/Acet 5/325 mg TABLET PO PRN ×3 (03:54→20:33)
[2016-10-05 06:18] LABS: INR 3.9
[2016-10-05 06:44] LABS: Prothrombin Time 43.8 Seconds (9.4-12.1)
[2016-10-05] MEDS: Lisinopril 20 MG TABLET PO SCH (07:03)
[2016-10-05] MEDS: PredniSONE 20 MG TABLET PO SCH (09:33)
[2016-10-05] MEDS: Fluticasone Propionate Nasal 50 MCG/SPRAY BOTTLE NS SCH (09:33)
[2016-10-05] MEDS: Acetaminophen 325 MG TABLET PO PRN (13:17)
--- NOTE | 2016-10-05 17:00 | Internal Med Progress Note ---
Date of Encounter: 10/05/16 Time of Encounter: 15:30 - Assessment and plan (1) Femur fracture, right Current Visit: Yes Status: Acute Assessment and plan: Continue with PT and OT. I will order FRANKIE hose to lessen edema Qualifiers: Encounter type: subsequent encounter Fracture type: closed Fracture morphology: unspecified fracture morphology Fracture healing: with routine healing Qualified Code(s): S72.301D - Unspecified fracture of shaft of right femur, subsequent encounter for closed fracture with routine healing (2) Macrocytic anemia Current Visit: Yes Status: Acute Assessment and plan: October 02. B12 and folate were normal 09/26/2016. Iron profile is unremarkable. TSH was normal at 0.932 on 11/27/2014. (3) Hypertension Current Visit: No Status: Chronic Assessment and plan: October 02. Continue Norvasc lisinopril and Lopressor. I will increase Hytrin to 2 mg at bedtime. October 05. Will increase Hytrin dose and continue Norvasc, lisinopril, and Lopressor Qualifiers: Hypertension type: essential hypertension Qualified Code(s): I10 - Essential (primary) hypertension (4) DVT (deep venous thrombosis) Current Visit: Yes Status: Acute Assessment and plan: October 02. She reports this was diagnosed during her recent [place] hospitalization. Her pro time is now therapeutic. We will discontinue Lovenox October 05. Continue Coumadin therapy and adjust dose as needed Qualifiers: DVT location: lower extremity Affected thrombotic vein of extremity: unspecified vein of extremity Laterality: right Chronicity: acute Qualified Code(s): I82.401 - Acute embolism and thrombosis of unspecified deep veins of right lower extremity - Subjective Interval history: October 02. She has no new complaints except constipation. October 05. She has no new complaints. - Constitutional Vitals: Temp Pulse Resp BP Pulse Ox 97.6 F 62 16 202/72 97 10/05/16 06:42 10/05/16 06:42 10/05/16 06:42 10/05/16 06:42 10/05/16 06:42 Exam: She is resting comfortably in bed. She is wearing thigh-high FRANKIE hose. She has decreased edema in the right leg from previous exam. Her affect is bright and cheerful. I reviewed her medications and lab results. Internal Medicine: Result - Labs CBC & Chem 7: 09/30/16 05:45 10/02/16 06:24 - ABG Interpretation ABG results: PT/INR, D-dimer PT 43.8 Seconds (9.4-12.1) H* D 10/05/16 05:35 - VTE Documentation of Mechanical Device: Graduated compression elastic hosiery Consult Discharge Plan - Plan Referrals: Jeffery Pastor MD [Primary Care Provider] - 1 week
[2016-10-05] MEDS: Cholestyramine 4 GM POWD.PACK PO SCH ×2 (17:12→17:54)
[2016-10-06] MEDS: *HR* HYDROcodone/Acet 5/325 mg TABLET PO PRN ×4 (01:17→20:08)
[2016-10-06] MEDS: Cholestyramine 4 GM POWD.PACK PO SCH ×2 (06:14→15:28)
[2016-10-06] MEDS: PredniSONE 20 MG TABLET PO SCH (09:14)
[2016-10-06] MEDS: Lisinopril 20 MG TABLET PO SCH (09:15)
[2016-10-06] MEDS: Fluticasone Propionate Nasal 50 MCG/SPRAY BOTTLE NS SCH (09:16)
[2016-10-07] MEDS: *HR* HYDROcodone/Acet 5/325 mg TABLET PO PRN ×3 (00:20→20:44)
[2016-10-07] MEDS: Acetaminophen 325 MG TABLET PO PRN ×2 (05:45→13:40)
[2016-10-07] MEDS: Cholestyramine 4 GM POWD.PACK PO SCH ×2 (08:00→18:20)
[2016-10-07] MEDS: PredniSONE 20 MG TABLET PO SCH (08:02)
[2016-10-07] MEDS: Lisinopril 20 MG TABLET PO SCH (08:02)
[2016-10-07 08:42] LABS: INR 2.7; Prothrombin Time 30.4 Seconds (9.4-12.1)
[2016-10-07] MEDS: Fluticasone Propionate Nasal 50 MCG/SPRAY BOTTLE NS SCH (13:40)
--- NOTE | 2016-10-07 18:01 | Internal Med Progress Note ---
Date of Encounter: 10/07/16 Time of Encounter: 17:50 - Assessment and plan (1) Femur fracture, right Current Visit: Yes Status: Acute Assessment and plan: October 05. Continue with PT and OT. I will order FRANKIE currie to lessen edema Qualifiers: Encounter type: subsequent encounter Fracture type: closed Fracture morphology: unspecified fracture morphology Fracture healing: with routine healing Qualified Code(s): S72.301D - Unspecified fracture of shaft of right femur, subsequent encounter for closed fracture with routine healing (2) Macrocytic anemia Current Visit: Yes Status: Acute Assessment and plan: October 02. B12 and folate were normal 09/26/2016. Iron profile is unremarkable. TSH was normal at 0.932 on 11/27/2014. (3) Hypertension Current Visit: No Status: Chronic Assessment and plan: October 02. Continue Norvasc lisinopril and Lopressor. I will increase Hytrin to 2 mg at bedtime. October 05. Will increase Hytrin dose and continue Norvasc, lisinopril, and Lopressor October 07. Blood pressure is still suboptimally controlled. Will increase Hytrin further and continue Norvasc, lisinopril, and Lopressor Qualifiers: Hypertension type: essential hypertension Qualified Code(s): I10 - Essential (primary) hypertension (4) DVT (deep venous thrombosis) Current Visit: Yes Status: Acute Assessment and plan: October 02. She reports this was diagnosed during her recent [place] hospitalization. Her pro time is now therapeutic. We will discontinue Lovenox October 05. Continue Coumadin therapy and adjust dose as needed Qualifiers: DVT location: lower extremity Affected thrombotic vein of extremity: unspecified vein of extremity Laterality: right Chronicity: acute Qualified Code(s): I82.401 - Acute embolism and thrombosis of unspecified deep veins of right lower extremity - Subjective Interval history: October 02. She has no new complaints except constipation. October 05. She has no new complaints. October 07. She has no new complaints. She has slight pain still in her right leg. She is anticipating discharge home October 09 - Constitutional Vitals: Temp Pulse Resp BP Pulse Ox 98.0 F 64 18 134/45 97 10/07/16 07:16 10/07/16 07:16 10/07/16 07:16 10/07/16 07:16 10/07/16 07:16 Exam: She is sitting in a chair resting comfortably. Her affect is bright and cheerful. She has trace edema of the right leg. There is evolving ecchymosis as expected. Left leg is unremarkable. I reviewed her medications and lab results. Internal Medicine: Result - Labs CBC & Chem 7: 09/30/16 05:45 10/02/16 06:24 - ABG Interpretation ABG results: PT/INR, D-dimer PT 30.4 Seconds (9.4-12.1) H 10/07/16 07:31 - VTE Documentation of Mechanical Device: Graduated compression elastic hosiery Consult Discharge Plan - Plan Referrals: Jeffery Pastor MD [Primary Care Provider] - 1 week
[2016-10-07] MEDS: *HR* Warfarin 2 MG TABLET PO SCH (18:11)
[2016-10-08] MEDS: Acetaminophen 325 MG TABLET PO PRN ×2 (03:42→12:46)
[2016-10-08] MEDS: Cholestyramine 4 GM POWD.PACK PO SCH ×2 (05:54→13:53)
[2016-10-08] MEDS: Fluticasone Propionate Nasal 50 MCG/SPRAY BOTTLE NS SCH (08:52)
[2016-10-08] MEDS: Lisinopril 20 MG TABLET PO SCH (08:53)
[2016-10-08] MEDS: PredniSONE 5 MG TABLET PO SCH (08:53)
[2016-10-08] MEDS: *HR* HYDROcodone/Acet 5/325 mg TABLET PO PRN ×3 (09:41→21:57)
--- NOTE | 2016-10-08 15:16 | Internal Med Progress Note ---
Date of Encounter: 10/08/16 Time of Encounter: 15:05 - Assessment and plan (1) Femur fracture, right Current Visit: Yes Status: Acute Assessment and plan: October 05. Continue with PT and OT. I will order FRANKIE hose to lessen edema October 08. We will send for CT of right leg to evaluate for hematoma or other new abnormalities. Qualifiers: Encounter type: subsequent encounter Fracture type: closed Fracture morphology: unspecified fracture morphology Fracture healing: with routine healing Qualified Code(s): S72.301D - Unspecified fracture of shaft of right femur, subsequent encounter for closed fracture with routine healing (2) Macrocytic anemia Current Visit: Yes Status: Acute Assessment and plan: October 02. B12 and folate were normal 09/26/2016. Iron profile is unremarkable. TSH was normal at 0.932 on 11/27/2014. (3) Hypertension Current Visit: No Status: Chronic Assessment and plan: October 02. Continue Norvasc lisinopril and Lopressor. I will increase Hytrin to 2 mg at bedtime. October 05. Will increase Hytrin dose and continue Norvasc, lisinopril, and Lopressor October 07. Blood pressure is still suboptimally controlled. Will increase Hytrin further and continue Norvasc, lisinopril, and Lopressor October 08. Blood pressure slightly improved. Continue present dose medication Qualifiers: Hypertension type: essential hypertension Qualified Code(s): I10 - Essential (primary) hypertension (4) DVT (deep venous thrombosis) Current Visit: Yes Status: Acute Assessment and plan: October 02. She reports this was diagnosed during her recent [place] hospitalization. Her pro time is now therapeutic. We will discontinue Lovenox October 05. Continue Coumadin therapy and adjust dose as needed October 08. Continue Coumadin. Qualifiers: DVT location: lower extremity Affected thrombotic vein of extremity: unspecified vein of extremity Laterality: right Chronicity: acute Qualified Code(s): I82.401 - Acute embolism and thrombosis of unspecified deep veins of right lower extremity - Subjective Interval history: October 02. She has no new complaints except constipation. October 05. She has no new complaints. October 07. She has no new complaints. She has slight pain still in her right leg. She is anticipating discharge home October 09 October 08. She stated she had therapy this morning and now has very severe pain in her right leg. - Constitutional Vitals: Temp Pulse Resp BP Pulse Ox 98.2 F 66 18 172/79 96 10/08/16 06:38 10/08/16 06:38 10/08/16 06:38 10/08/16 06:38 10/08/16 06:38 Exam: She has a very hard mid right thigh with evolutionary changes from previously noted ecchymoses. Reviewed her medications and lab results. Internal Medicine: Result - Labs CBC & Chem 7: 09/30/16 05:45 10/02/16 06:24 - ABG Interpretation ABG results: PT/INR, D-dimer PT 30.4 Seconds (9.4-12.1) H 10/07/16 07:31 - VTE Documentation of Mechanical Device: Graduated compression elastic hosiery Consult Discharge Plan - Plan Referrals: Jeffery Pastor MD [Primary Care Provider] - 1 week
[2016-10-08] MEDS ORDERED: *HR* Morphine 2 MG/ML SYRINGE IVP PRN (15:19)
[2016-10-08] MEDS: *HR* Morphine 2 MG/ML SYRINGE IV PRN (16:32)
[2016-10-08] MEDS ORDERED: *HR* Warfarin 3 MG TABLET PO SCH (18:00)
[2016-10-08] MEDS: *HR* OxyCODONE/APAP 10/325 TABLET PO PRN (18:25)
[2016-10-09] MEDS: *HR* Morphine 2 MG/ML SYRINGE IV PRN (00:23)
[2016-10-09] MEDS: *HR* OxyCODONE/APAP 10/325 TABLET PO PRN ×3 (01:47→14:09)
[2016-10-09] MEDS: *HR* HYDROcodone/Acet 5/325 mg TABLET PO PRN (05:38)
[2016-10-09] MEDS: Cholestyramine 4 GM POWD.PACK PO SCH (05:40)
[2016-10-09 06:08] LABS: Basophils % 0.2 %; Eosinophils % 0.4 %; Hematocrit 34.1 % (35.3-44.9); Hemoglobin 11.1 g/dL (11.5-15.4); Immature Granulocytes % 0.5 % (0-4); Lymphocytes # 2.7 K/mcL (0.6-4.6); Lymphocytes % 26.3 %; Mean Corpuscular HGB Conc 32.6 g/dL (31.6-35.5); Mean Corpuscular Hemoglobin 35.4 pg (28.0-33.3); Mean Corpuscular Volume 108.6 fL (83.0-100.0); Mean Platelet Volume 10.7 fL (9.4-12.4); Monocytes # 1.2 K/mcL (0.0-1.3); Monocytes % 11.6 %; Neutrophils # 6.2 K/mcL (1.6-8.9); Platelet Count 197 K/mcL (140-400); Red Blood Count 3.14 M/mcL (3.82-4.97); Red Cell Distribution Width 16.3 % (11.5-14.5)
[2016-10-09 06:14] LABS: INR 2.8
[2016-10-09 06:23] VITALS: BP 175/66
[2016-10-09] MEDS: PredniSONE 5 MG TABLET PO SCH (09:24)
[2016-10-09] MEDS: Lisinopril 20 MG TABLET PO SCH (09:24)
[2016-10-09] MEDS: Fluticasone Propionate Nasal 50 MCG/SPRAY BOTTLE NS SCH (09:25)
--- NOTE | 2016-10-09 12:04 | Discharge Summary ---
Date of Encounter: 10/09/16 Time of Encounter: 11:30 - Discharge Diagnosis (1) Femur fracture, right Priority: Primary Status: Acute Qualifiers: Encounter type: subsequent encounter Fracture type: closed Fracture morphology: unspecified fracture morphology Fracture healing: with routine healing Qualified Code(s): S72.301D - Unspecified fracture of shaft of right femur, subsequent encounter for closed fracture with routine healing (2) Hematoma of right thigh Priority: Secondary Status: Acute Qualifiers: Encounter type: initial encounter Qualified Code(s): S70.11XA - Contusion of right thigh, initial encounter (3) Macrocytic anemia Priority: Secondary Status: Chronic (4) Hypertension Priority: Secondary Status: Chronic Qualifiers: Hypertension type: essential hypertension Qualified Code(s): I10 - Essential (primary) hypertension (5) DVT (deep venous thrombosis) Priority: Secondary Status: Acute Qualifiers: DVT location: lower extremity Affected thrombotic vein of extremity: unspecified vein of extremity Laterality: right Chronicity: acute Qualified Code(s): I82.401 - Acute embolism and thrombosis of unspecified deep veins of right lower extremity - Discharge Medications Prescriptions: OxyCODONE/APAP 10/325 [Percocet 10/325 MG] 1 each PO Q4HR PRN #40 tablet PRN Reason: Pain Alprazolam [Xanax 0.5 MG Tablet] 0.25 mg PO Q6HR PRN #20 tablet PRN Reason: Anxiety Amlodipine [Norvasc] 5 mg PO DAILY #30 tablet Atenolol [Tenormin] 50 mg PO BID #60 tablet Lisinopril [Zestril] 40 mg PO DAILY #60 tablet PredniSONE 5 mg PO DAILY #5 tablet Terazosin [Hytrin] 10 mg PO HS #60 capsule Warfarin [Coumadin] 3 mg PO DAILY@1800 #45 tablet Home Medications: Cholestyramine 4 gm PO BID 09/25/16 [History] Famotidine [Heartburn Prevention] 20 mg PO BID 09/25/16 [History] Flonase 50 mcg PO DAILY 09/25/16 [History] Lisinopril [Zestril] 40 mg PO DAILY 09/25/16 [History] Lovastatin [Altoprev] 40 mg PO HS 09/25/16 [History] Alprazolam [Xanax 0.5 MG Tablet] 0.25 mg PO Q6HR PRN #20 tablet 10/09/16 [Rx] Amlodipine [Norvasc] 5 mg PO DAILY #30 tablet 10/09/16 [Rx] Atenolol [Tenormin] 50 mg PO BID #60 tablet 10/09/16 [Rx] Lisinopril [Zestril] 40 mg PO DAILY #60 tablet 10/09/16 [Rx] Omeprazole 20 mg PO DAILY PRN 365 Days 10/09/16 [Rx] OxyCODONE/APAP 10/325 [Percocet 10/325 MG] 1 each PO Q4HR PRN #40 tablet [Rx] PredniSONE 5 mg PO DAILY #5 tablet 10/09/16 [Rx] Terazosin [Hytrin] 10 mg PO HS #60 capsule 10/09/16 [Rx] Warfarin [Coumadin] 3 mg PO DAILY@1800 #45 tablet 10/09/16 [Rx] Allergies/Adverse Reactions: Allergies codeine Allergy (Verified 07/13/16 14:42) Rash Penicillins [PCN] Allergy (Verified 07/13/16 14:42) Rash Sulfa (Sulfonamide Antibiotics) Allergy (Verified 07/13/16 14:42) Rash Procedures/tests Complete & Pending: Procedures Performed prior 72 hours Category Date Time Status CT femur RT wo con [CT] Routine Cat Scan 10/08/16 15:17 Completed MR femur RT wo con [MR] Routine MRI 10/08/16 17:53 Completed Date of admission: 09/30/16 20:45 Primary care physician: Jeffery Pastor MD Consults: 09/30/16 21:20 Consult to Occupational Therapy [CONS] Routine Comment: Evaluate, develop, and implement plan of care. Consult to Physical Therapy [CONS] Routine Comment: Evaluate, develop, and implement plan of care. Consult to Customer Engagement Analyst [CONS] Routine Reason for Consult: New swing bed admission. - Patient Status Disposition: Home, Self-Care Overall status at discharge: patient is progressing back to baseline - Discharge Instructions Follow Up With: Jeffery Pastor MD [Primary Care Provider] - 1 week - Diet and Activity Activity: resume usual activities as tolerated Diet: advance to your usual diet Hospital course: Ms. Joseph is a 80 year old female who was admitted to swing bed after a [facility] stay for evaluation for right femur fracture. She had a fall approximately 2 months ago and had increasing pain in the right hip/leg. She was admitted to [facility] September 26 for intractable pain in her right hip. The fracture was found and she was sent to [facility]. She was treated nonoperatively because of the age of the fracture. She was admitted to [facility] September 30 for swing bed stay for rehabilitation therapy prior to returning to independent living. Initial orders were written by the discharging physician at [facility]. I saw her on October 01 and performed a swing bed history and physical. She had physical therapy and occupational therapy evaluation with ongoing interventions. She was able to ambulate a satisfactory distance by the time of discharge. She had fluctuating amount of pain in the right thigh. A repeat CT done October 08 showed subacute greater trochanteric displaced fracture on the right without significant change from the September 27 study. A large hematoma was again noted in the right thigh. An MRI was recommended to rule out occult fracture. The MRI was done and showed no evidence of occult fracture. A repeat CT was recommended in 3-6 months to document resolution of the hematoma and exclude small possibility of an underlying tumor that could have bled. I will let Dr. Jeffery Pastor follow-up on this. She was given Percocet 10/325 which seemed to prove the pain enough to allow for ambulation. Macrocytic anemia workup was done with normal B12 and folate results. TSH was normal at 0.932 on 11/27/2014 and was not repeated. Her blood pressure remained elevated frequently. She was given increased doses of medication. Her present regimen will be continued at discharge. On October 09 she felt stable for discharge home. She will follow with her primary care provider Dr. Jeffery Pastor within 1 week. Pro times will be monitored per Dr. Pastor's directions. - Time Spent with Patient Total time spent providing and/or coordinating discharge services: - Constitutional Vitals: Temp Pulse Resp BP Pulse Ox 98.1 F 73 16 175/66 99 10/09/16 06:21 10/09/16 06:21 10/09/16 06:21 10/09/16 06:21 10/09/16 06:21 - VTE Documentation of Mechanical Device: Graduated compression elastic hosiery
== END 2016-10-09 15:48 | disposition home or self-care (01) | DRG 560 ==
LOC: INPPIK 20:45
PROVIDERS: ADMIT Internal Medicine; ATTEND Internal Medicine

== ENCOUNTER 2016-10-11 11:50 | Observation (INO) ==
--- NOTE | 2016-10-11 12:25 | Emergency Department Note ---
Disposition Clinical Impression: Hematoma of right thigh, Femur fracture, right, Thigh injury, Intractable pain Disposition: Admitted As Inpatient Condition: Fair Referrals: Jeffery Pastor MD [Primary Care Provider] - Forms: ED Satisfaction Letter Time of Disposition: 14:16 Lower Extremity Injury HPI - General Chief Complaint: ED Extremity Problem,Nontraumatic Stated Complaint: unable to get up d/t right leg Time Seen by Provider: 10/11/16 12:00 Source: patient, EMS Mode of arrival: EMS Limitations: age Nursing Notes Reviewed: Yes Vital Signs Reviewed: Yes - History of Present Illness HPI Narrative: Is being discharged on Wednesday the patient states that she has had trouble getting up off the toilet getting out of bed she has her own bed at home and she does not have any assist or lift on the toilet to make things easier patient now presents here to the emergency room unable to she says she has not had today and has not eaten today the there was family at home they did not give her her meds and they also did not get her to a meal it was reported that time she was released from the hospital on Wednesday she was admitted great distances with a home patient tells has not been up and moving about She tells me she has not eating she has not had her medications family shows up and states that they had trouble getting her out of bed which is why they brought her into the ER for further evaluation Pt Subjective Complaint: hip injury Injury location: Right hip, Right thigh Onset (ago): month(s) (2 month fracture to the hip) Mechanism of Injury: fall Context: other (unable to ambulate and bear wgt since vt on wednesday though ambulating well at vt) Place: home Pain Severity: moderate Pain Scale: 2 Improves with: nothing Worsens with: weight bearing Associated symptoms: Reports: able to partially bear weight - Related Data Home Medications Medication Instructions Recorded Confirmed Flonase 50 mcg PO DAILY 09/25/16 10/11/16 Previous Rx's Medication Instructions Recorded Alprazolam [Xanax 0.5 MG Tablet] 0.25 mg PO Q6HR PRN #20 tablet 10/09/16 Amlodipine [Norvasc] 5 mg PO DAILY #30 tablet 10/09/16 Atenolol [Tenormin] 50 mg PO BID #60 tablet 10/09/16 Lisinopril [Zestril] 40 mg PO DAILY #60 tablet 10/09/16 Omeprazole 20 mg PO DAILY PRN 365 Days 10/09/16 OxyCODONE/APAP 10/325 [Percocet 1 each PO Q4HR PRN #40 tablet 10/09/16 10/325 MG] PredniSONE 5 mg PO DAILY #5 tablet 10/09/16 Terazosin [Hytrin] 10 mg PO HS #60 capsule 10/09/16 Warfarin [Coumadin] 3 mg PO DAILY@1800 #45 tablet 10/09/16 Allergies Allergy/AdvReac Type Severity Reaction Status Date / Time codeine Allergy Rash Verified 07/13/16 14:42 Penicillins [PCN] Allergy Rash Verified 07/13/16 14:42 Sulfa (Sulfonamide Allergy Rash Verified 07/13/16 14:42 Antibiotics) All systems ED: reviewed and negative except as stated. Constitutional: Reports: weakness, weight change. Denies: fever, chills Eyes: Denies: vision change ENT ED: Denies: ear pain, throat pain Cardiovascular: Denies: chest pain Respiratory: Denies: cough, dyspnea Gastrointestinal: Denies: abdominal pain, nausea, vomiting Genitourinary: Denies: urgency, dysuria, frequency Musculoskeletal: Reports: myalgia. Denies: back pain, neck pain, joint swelling , arthralgia Integumentary: Denies: rash, abrasion Neurological: Denies: headache, weakness Psychiatric: Denies: anxiety Endocrine: Denies: fatigue Hematological/Lymphatic: Denies: easy bleeding Allergic/Immunologic: Denies: facial swelling Past Medical History - Past Medical History Attestation: Yes The following information was validated with the patient. Source: patient, old records reviewed, nursing notes reviewed Medical history: Reports: arthritis, DVT, GERD, hypertension, other Surgical history: Reports: appendectomy, cholecystectomy, KELIN/BSO, other Psychiatric history: Reports: no psych history - Social History Smoking Status: Former smoker Smokeless Tobacco Status: No Alcohol use: Reports: occasionally Drug use: Reports: other Physical Exam - General Limitations: no limitations General appearance: alert, in no apparent distress - Head Head exam: atraumatic, normocephalic, normal inspection - Eye Eye exam: Present: normal appearance, PERRL, EOMI - ENT ENT exam: normal exam, normal oropharynx, mucous membranes moist, normal external ear exam - Neck Neck exam: Present: normal inspection, full ROM, trachea midline - Chest Chest inspection: Present: normal inspection, symmetric chest wall rise - Respiratory Respiratory exam: Present: normal lung sounds bilaterally - Cardiovascular Cardiovascular exam: Present: regular rate, normal rhythm, normal heart sounds - Abdominal Exam Abdominal exam: Present: soft, Non-Tender, normal bowel sounds. Absent: mass, pulsatile mass - Expanded Upper Extremity Exam Shoulder exam: Present: normal inspection, full ROM Arm exam: Present: normal inspection, full ROM Elbow exam: Present: normal inspection, full ROM Forearm/Wrist exam: Present: normal inspection, full ROM Hand exam: Present: normal inspection, full ROM Vascular exam: Normal: capillary refill, radial pulse - Expanded Lower Extremity Exam Hip/Pelvis exam: Present: tenderness, swelling Upper leg exam: Present: tenderness, swelling Knee exam: Present: full ROM, tenderness, swelling Lower leg exam: Present: full ROM, tenderness, swelling, other (She is having some weeping of the leg still continues to have significant bruising and ecchymosis of the thigh area there is stage coloring consistent with greater than 1 week duration years drainage and lower extremity secondary to edema as a result keeping the patient's leg in a dependent position) Ankle exam: Present: full ROM, tenderness, swelling Foot/toe exam: Present: full ROM, tenderness, swelling Neurovascular/Tendon exam: Present: normal capillary refill, normal fine/light touch Gait: not tested/not observed - Back Exam Back exam: Present: normal inspection, full ROM - Neurological Exam Neurological exam: Present: alert, oriented X3, CN II-XII intact - Psychiatric Psychiatric exam: Present: normal affect, normal mood - Skin Skin exam: Present: warm, dry, intact, normal color Course Course Narrative: Seen and examined re-x-ray of the hip and femur was done discussion with Dr. Goodman for further management will try talking to clinical social worker see if she qualified directly from the ER to local nursing care facilities with [facility] having openings at this time for rehabilitation swing bed type services or swelling services here at our facility - Reevaluation(s) Reevaluation #1: I did try to discuss with both the brother and her daughter about issues in getting her into nursing care facilities with her recent hospitalization that she does possibly qualify for nursing care facility placement but it is very difficult to deal course the weekend family is adamant that they will not be taking her home that further management needs to be done through the emergency room tried to explain the concern but with little avail Reevaluation #2: Extensive conversation with Dr. Rex Pastor clinical social worker patient be admitted for 23 hour observation for her debilitated state and the swelling and edema and large 70 which appears to be serous sanguinous and is resolved possibly need for further help equipment at home to help benefit patient as result admit her for observation with PT OT evaluation Vital Signs Temperature 99 F 10/11/16 11:56 Pulse Rate 70 10/11/16 11:56 Respiratory Rate 18 10/11/16 11:56 Blood Pressure 118/54 10/11/16 11:56 O2 Sat by Pulse Oximetry 99 10/11/16 11:56 Temperature 99 F 10/11/16 11:58 Pulse Rate 70 10/11/16 11:58 Respiratory Rate 18 10/11/16 11:58 Blood Pressure 118/54 10/11/16 11:58 O2 Sat by Pulse Oximetry 99 10/11/16 11:58 Oxygen Delivery Oxygen Delivery Room Air Extremity Injury, Lower - MDM Narrative Medical decision making narrative: Generalized weakness failed outpatient physical therapy despite having recently been hospitalized ability to stay increased swelling and edema to the leg secondary to hematoma anticoagulant therapy due to history of DVT - Medical Records Medical records reviewed: Yes I reviewed the patient's medical records. - Lab Data Lab results reviewed: Yes I reviewed the patient's lab results. - Radiology Data Radiology results reviewed: Yes I reviewed the patient's radiology results. Critical Care Time Critical Care Time: No
[2016-10-11] MEDS ORDERED: *HR* OxyCODONE/APAP 5/325 TABLET PO ONE (13:07)
[2016-10-11 13:38] LABS: Basophils % 0.4 %; Eosinophils # 0.1 K/mcL (0.0-0.6); Hematocrit 24.7 % (35.3-44.9); Immature Granulocytes % 0.2 % (0-4); Lymphocytes % 19.7 %; Mean Corpuscular HGB Conc 32.4 g/dL (31.6-35.5); Mean Corpuscular Hemoglobin 35.9 pg (28.0-33.3); Mean Corpuscular Volume 110.8 fL (83.0-100.0); Monocytes # 0.8 K/mcL (0.0-1.3); Monocytes % 15.9 %; Platelet Count 125 K/mcL (140-400); Red Blood Count 2.23 M/mcL (3.82-4.97); Red Cell Distribution Width 16.1 % (11.5-14.5); Segmented Neutrophils % 62.8 %
[2016-10-11 13:40] LABS: Neutrophils # 3.1 K/mcL (1.6-8.9)
[2016-10-11 13:47] LABS: Activated Partial Thrombo Time 45.5 Seconds (26.0-36.0)
[2016-10-11 13:49] LABS: INR 5.6; Prothrombin Time 63.3 Seconds (9.4-12.1)
[2016-10-11 13:50] LABS: BUN/Creatinine Ratio 34 (6-26); Blood Urea Nitrogen 28 mg/dL (7-20); Calcium 8.5 mg/dL (8.6-10.8); Carbon Dioxide 23 mEq/L (19-29); Chloride 105 mEq/L (98-109); Glucose 106 mg/dL (70-99); Osmolality,Calculated 290 (280-300); Potassium 4.6 mEq/L (3.5-4.5); Sodium 137 mEq/L (136-145); eGFR For African Americans > 60 (> 60); eGFR For Non-African Americans > 60 (> 60)
[2016-10-11] MEDS ORDERED: Naloxone 0.4 MG/ML INJ IVP PRN (14:37)
[2016-10-11] MEDS: *HR* OxyCODONE/APAP 10/325 TABLET PO PRN ×2 (17:38→21:24)
[2016-10-11] MEDS ORDERED: MOM Conc 10 ML UD.LIQ PO PRN (17:52)
[2016-10-12 06:03] LABS: Activated Partial Thrombo Time 45.2 Seconds (26.0-36.0)
[2016-10-12 06:04] LABS: Prothrombin Time 56.8 Seconds (9.4-12.1)
[2016-10-12 06:10] LABS: BUN/Creatinine Ratio 34 (6-26); Blood Urea Nitrogen 36 mg/dL (7-20); Calcium 8.3 mg/dL (8.6-10.8); Carbon Dioxide 25 mEq/L (19-29); Chloride 106 mEq/L (98-109); Glucose 115 mg/dL (70-99); Osmolality,Calculated 295 (280-300); Sodium 138 mEq/L (136-145); eGFR For African Americans > 60 (> 60); eGFR For Non-African Americans 51 (> 60)
[2016-10-12 06:41] LABS: Basophils % 0.2 %; Hemoglobin 6.9 g/dL (11.5-15.4); Immature Granulocytes % 0.5 % (0-4); Lymphocytes # 1.2 K/mcL (0.6-4.6); Lymphocytes % 17.9 %; Mean Corpuscular HGB Conc 32.9 g/dL (31.6-35.5); Mean Corpuscular Hemoglobin 36.1 pg (28.0-33.3); Mean Corpuscular Volume 109.9 fL (83.0-100.0); Mean Platelet Volume 11.4 fL (9.4-12.4); Monocytes # 0.8 K/mcL (0.0-1.3); Monocytes % 12.5 %; Neutrophils # 4.5 K/mcL (1.6-8.9); Platelet Count 109 K/mcL (140-400); Red Blood Count 1.91 M/mcL (3.82-4.97); Red Cell Distribution Width 16.2 % (11.5-14.5); Segmented Neutrophils % 68.9 %
[2016-10-12] MEDS ORDERED: Lisinopril 20 MG TABLET PO SCH (09:00)
--- NOTE | 2016-10-12 09:58 | Internal Med History&Physical ---
Date of Encounter: 10/12/16 Time of Encounter: 09:30 Assessment and Plan (1) Femur fracture, right Current visit: Yes Status: Acute She will have PT and OT evaluations to reassess her functional status. She may need SNF placement for longer term rehabilitation prior to returning to independent living. Qualifiers: Encounter type: subsequent encounter Femur location: greater trochanter Fracture type: closed Fracture alignment: displaced Fracture healing: with routine healing Qualified Code(s): S72.111D - Displaced fracture of greater trochanter of right femur, subsequent encounter for closed fracture with routine healing (2) Hematoma of right thigh Current visit: Yes Status: Acute CT scan in emergency room yesterday showed slight decrease in size from previous studies (CT and MRI) last week. Continue present management. Qualifiers: Encounter type: subsequent encounter Qualified Code(s): S70.11XD - Contusion of right thigh, subsequent encounter (3) DVT (deep venous thrombosis) Current visit: No Status: Acute Continue Coumadin therapy. Monitor pro times and adjust dose as needed. Qualifiers: DVT location: lower extremity Affected thrombotic vein of extremity: unspecified vein of extremity Laterality: right Chronicity: acute Qualified Code(s): I82.401 - Acute embolism and thrombosis of unspecified deep veins of right lower extremity (4) Hypertension Current visit: No Status: Chronic Continue Zestril, Norvasc, and Tenormin Qualifiers: Hypertension type: essential hypertension Qualified Code(s): I10 - Essential (primary) hypertension (5) Macrocytic anemia Current visit: No Status: Chronic Hemoglobin was 6.9 on labs today. She will receive 1 unit of packed red blood cells. No factor deficiency was seen on labs last week. TSH was also normal Internal Medicine - H&P: HPI Chief complaint: Weakness, right leg hematoma Admitted From: Home Plans for Post Hospital Care: Home History of present illness: Ms. Joseph is a 80 year old female who was hospitalized at [facility] swing bed October 01-October 09 following hospitalization at [facility] for evaluation for right greater trochanter femur fracture. She was treated nonoperatively at [facility]. Her swing bed course was satisfactory with demonstrated ability to ambulate satisfactory. Upon returning home she was unable to adequately care for all of her needs. Her family felt she was getting weaker and noted she was unable to get out of bed independently. Family contacted Dr. Jeffery Pastor who recommended she be brought to emergency room for reevaluation. Repeat CT scan of right leg in emergency room showed no new fracture and overall decrease in the size of the right thigh hematoma. Her mental status seemed to be decreased however from the time of discharge home on October 08. She was admitted to observation bed until further disposition could be made. 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 She had lumbar laminectomy with vertebral fusion approximately 2007 at [facility]. She denies gout or other bone joint or muscle disorders. Past Med Surg Social Fam HX - Past Medical History Medical history: arthritis, DVT, GERD, hypertension, other Psychiatric history: no psych history - Past Surgical History Surgical History: appendectomy, cholecystectomy, KELIN/BSO, other - Social History Smoking Status: Former smoker Smokeless Tobacco Status: No Alcohol use: occasionally Drug use: other - Family History Mother History Unknown: Yes Adopted: No Living Status: Hx Family Cardiac Disorders: No Hx Family Respiratory Disorders: No Hx Family Cancer: No Hx Family GI Disorders: No Hx Family Genitourinary Disorders: No Hx Family Endocrine Disorder: No Hx Family Musculoskeletal Disorders: No Hx Family Neuromuscular Disorders: No Hx Family Neurologic Disorders: No Hx Family HEENT Disorders: No Hx Family Autoimmune Disorders: No Hx Family Reproductive Disorders: No Hx Family Psychosocial Disorders: No Father Adopted: No Living Status: Internal Medicine - H&P: Meds Flonase 50 mcg PO DAILY 09/25/16 [History] Alprazolam [Xanax 0.5 MG Tablet] 0.25 mg PO Q6HR PRN #20 tablet 10/09/16 [Rx] Amlodipine [Norvasc] 5 mg PO DAILY #30 tablet 10/09/16 [Rx] Atenolol [Tenormin] 50 mg PO BID #60 tablet 10/09/16 [Rx] Lisinopril [Zestril] 40 mg PO DAILY #60 tablet 10/09/16 [Rx] Omeprazole 20 mg PO DAILY PRN 365 Days 10/09/16 [Rx] OxyCODONE/APAP 10/325 [Percocet 10/325 MG] 1 each PO Q4HR PRN #40 tablet [Rx] PredniSONE 5 mg PO DAILY #5 tablet 10/09/16 [Rx] Terazosin [Hytrin] 10 mg PO HS #60 capsule 10/09/16 [Rx] Warfarin [Coumadin] 3 mg PO DAILY@1800 #45 tablet 10/09/16 [Rx] Allergies codeine Allergy (Verified 07/13/16 14:42) Rash Influenza Virus Vaccines Allergy (Verified 10/11/16 14:24) See Comments Penicillins [PCN] Allergy (Verified 07/13/16 14:42) Rash Sulfa (Sulfonamide Antibiotics) Allergy (Verified 07/13/16 14:42) Rash All Systems PM: A 10-system review of systems was performed and is negative for pertinent findings except as documented above in the HPI. Review of systems: Review of systems from her recent history and physical were reviewed and revised as below. Gen.: She states her weight has been stable the past 6 months Cardiovascular: She was told she had a DVT in her right leg during her recent [facility] stay. She was placed on Coumadin therapy. She has not had previous DVT. She has a history of hypertension but denies [place] heart failure or angina. She thinks she had an exercise stress test approximately 2011. Respiratory: She smoked from approximately age [age] never exceeding one third pack per day. She denies chronic lung disease GI: She has had cholecystectomy but denies disorders of her liver or exocrine pancreas : She denies hematuria dysuria or kidney stones Neurologic: She denies large distribution strokes or seizures. 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 Endocrine: She has hyperlipidemia but denies diabetes or thyroid disease Hematology/oncology: She has anemia but denies internal malignancies or other blood disorders. Anemia testing done during swing bed stay showed no factor deficiency. Psychiatric: She has had anxiety and depression in the past but has not received treatment recently. She denies other mental health issues Musk skeletal: As per history of present illness - Constitutional Vitals: Temp Pulse Resp BP Pulse Ox 98.4 F 76 18 92/51 93 L 10/12/16 06:44 10/12/16 06:44 10/12/16 06:44 10/12/16 06:44 10/12/16 06:44 Exam: Gen.: She is well-developed well-nourished female who appears in no acute distress. She denies pain or dyspnea HEENT: Head is atraumatic and normal cephalic. Eyes: EOMI. There is no scleral icterus. Mouth: Mucosa is moist. Neck: Supple and nontender. There is no thyromegaly or adenopathy noted. Heart: Regular without murmurs gallops or ectopics. Lungs: No wheezes or crackles are heard. She has egophony heard posteriorly in the mid lung hernandez Abdomen: Soft and nontender. No masses or guarding are noted. Extremities: The left leg is unremarkable. The right leg shows significant larger size than the left with evolutionary discoloration from large hematoma known to be present. She has 1-2+ edema of the dorsum of the foot and lower leg on the right. She has DJD changes of her hands. Neurologic: Mental status: She is awake and able to answer a few questions. She has difficulty in spontaneous conversation or providing adequate explanations to questions. She is able to answer questions with short answers only. She knows her age and location. Cranial nerves: Smile is symmetric. 4 had wrinkles bilaterally. Tongue protrudes midline. EOMI. Motor: There is no pronator drift. Rapid finger movements are intact bilaterally. Cerebellar: Finger to nose is intact bilaterally. Skin: She has discoloration of the right leg as noted above. Otherwise her skin is warm and dry. Internal Med - H&P Results - Labs CBC & Chem 7: 10/12/16 05:10 10/12/16 05:10 Labs: Short CBC 10/12/16 Range/Units 05:10 WBC 6.5 (4.3-11.1) K/mcL Hgb 6.9 L (11.5-15.4) g/dL Hct 21.0 L (35.3-44.9) % Plt Count 109 L (140-400) K/mcL Neutrophils # 4.5 (1.6-8.9) K/mcL BMP 10/12/16 05:10 Sodium 138 Potassium 5.0 H Chloride 106 Carbon Dioxide 25 BUN 36 H Creatinine 1.05 Glucose 115 H Calcium 8.3 L - Impressions ITS Impressions Head CT 10/12/16 06:23 IMPRESSION: Grossly stable small vessel chronic ischemic changes with no acute hemorrhage or definite evidence for acute ischemia. Stroke alert results were called by Dr. Pankaj Neves MD to Dr. Stevenson on 10/12/2016 at 06:49. D/ / Pankaj Neves MD / Pankaj Neves MD Interpreting Provider: aPnkaj Neves MD
[2016-10-12] MEDS ORDERED: 0.9 % Sodium Chloride Mini Bag 100 ML IVC ONE (11:30)
[2016-10-12] MEDS: PredniSONE 5 MG TABLET PO SCH (15:32)
[2016-10-12] MEDS: Fluticasone Propionate Nasal 50 MCG/SPRAY BOTTLE NS SCH (15:32)
[2016-10-12] MEDS: *HR* OxyCODONE/APAP 10/325 TABLET PO PRN (15:45)
[2016-10-12 19:29] LABS: Bilirubin,Urine Negative (Negative); Blood,Urine Small (Negative); Clarity,Urine Cloudy (Clear); Color,Urine Yellow (Yellow); Glucose,Urine (UA) Normal (Normal); Ketones,Urine Negative (Negative); Leukocyte Esterase,Urine Moderate (Negative); Nitrite,Urine Negative (Negative); PH,Urine 7.5 pH Units (5.0-8.0); Protein,Urine 30 mg/dL (Neg-Trace); Specific Gravity,Urine 1.015 (1.010-1.025); Urobilinogen,Urine Normal (Normal)
[2016-10-12 19:42] LABS: Bacteria,Urine Many per hpf (None-Few); Triple Phosphate Crystal,Urine Present; WBC,Urine TNTC per hpf (0-3)
[2016-10-12 19:44] LABS: Squamous Epithelial Cell,Urine Few per lpf (None-Few)
[2016-10-12 19:46] LABS: Transitional Epi Cells,Urine Few per hpf (None-Few)
[2016-10-13] MEDS: *HR* OxyCODONE/APAP 10/325 TABLET PO PRN ×2 (05:00→21:25)
[2016-10-13 05:40] LABS: Basophils % 0.2 %; Eosinophils # 0.1 K/mcL (0.0-0.6); Eosinophils % 0.5 %; Hematocrit 24.4 % (35.3-44.9); Immature Granulocytes % 0.7 % (0-4); Lymphocytes # 1.3 K/mcL (0.6-4.6); Lymphocytes % 14.2 %; Mean Corpuscular HGB Conc 32.8 g/dL (31.6-35.5); Mean Corpuscular Hemoglobin 34.5 pg (28.0-33.3); Mean Corpuscular Volume 105.2 fL (83.0-100.0); Mean Platelet Volume 10.7 fL (9.4-12.4); Monocytes # 0.9 K/mcL (0.0-1.3); Monocytes % 10.2 %; Neutrophils # 6.8 K/mcL (1.6-8.9); Platelet Count 116 K/mcL (140-400); Red Blood Count 2.32 M/mcL (3.82-4.97); Red Cell Distribution Width 19.6 % (11.5-14.5); Segmented Neutrophils % 74.2 %
[2016-10-13 05:50] LABS: INR 3.8; Prothrombin Time 42.8 Seconds (9.4-12.1)
[2016-10-13] MEDS ORDERED: Ondansetron ODT 4 MG TAB.RAPDIS SL PRN (06:34)
[2016-10-13] MEDS: Lisinopril 20 MG TABLET PO SCH (07:50)
[2016-10-13] MEDS: PredniSONE 5 MG TABLET PO SCH (10:19)
[2016-10-13] MEDS: Fluticasone Propionate Nasal 50 MCG/SPRAY BOTTLE NS SCH (10:19)
--- NOTE | 2016-10-13 10:19 | Internal Med Progress Note ---
Date of Encounter: 10/13/16 Time of Encounter: 10:00 - Assessment and plan (1) Femur fracture, right Current Visit: Yes Status: Acute Assessment and plan: October 13. Continue PT and OT. SNF placement is anticipated. Qualifiers: Encounter type: subsequent encounter Femur location: greater trochanter Fracture type: closed Fracture alignment: displaced Fracture healing: with routine healing Qualified Code(s): S72.111D - Displaced fracture of greater trochanter of right femur, subsequent encounter for closed fracture with routine healing (2) Hematoma of right thigh Current Visit: Yes Status: Acute Assessment and plan: October 13. Continue present management. Qualifiers: Encounter type: subsequent encounter Qualified Code(s): S70.11XD - Contusion of right thigh, subsequent encounter (3) DVT (deep venous thrombosis) Current Visit: No Status: Acute Assessment and plan: October 13. Continue Coumadin therapy and monitor PT/INR. Qualifiers: DVT location: lower extremity Affected thrombotic vein of extremity: unspecified vein of extremity Laterality: right Chronicity: acute Qualified Code(s): I82.401 - Acute embolism and thrombosis of unspecified deep veins of right lower extremity (4) Hypertension Current Visit: No Status: Chronic Assessment and plan: October 13. Will hold antihypertensive medication since she is borderline hypotensive Qualifiers: Hypertension type: essential hypertension Qualified Code(s): I10 - Essential (primary) hypertension (5) Macrocytic anemia Current Visit: No Status: Chronic Assessment and plan: October 13. Hemoglobin was 8.0 today. (6) UTI (urinary tract infection) Current Visit: Yes Status: Acute Assessment and plan: October 13. Urine was sent for culture. She was started empirically on Levaquin. Qualifiers: Urinary tract infection type: site unspecified Hematuria presence: with hematuria Qualified Code(s): N39.0 - Urinary tract infection, site not specified; R31.9 - Hematuria, unspecified - Subjective Interval history: October 13. She has no new complaints. She denies pain or dyspnea. - Constitutional Vitals: Temp Pulse Resp BP Pulse Ox 98.0 F 64 16 98/46 94 L 10/13/16 07:27 10/13/16 08:44 10/13/16 08:44 10/13/16 08:44 10/13/16 08:44 Exam: She is resting comfortably in bed. She appears more awake and alert. She knows my name. Her right leg shows no significant change from yesterday. It is softer than examination last week. She has small ecchymosis on the left lateral malleolar area. Reviewed her medications and lab results. I had a long discussion with her son about her status and treatment plan Internal Medicine: Result - Labs CBC & Chem 7: 10/13/16 05:05 10/12/16 05:10 Labs: Short CBC 10/13/16 Range/Units 05:05 WBC 9.1 (4.3-11.1) K/mcL Hgb 8.0 L (11.5-15.4) g/dL Hct 24.4 L (35.3-44.9) % Plt Count 116 L (140-400) K/mcL Neutrophils # 6.8 (1.6-8.9) K/mcL Urine 10/12/16 Range/Units 19:15 Urine Color Yellow (Yellow) Urine Clarity Cloudy A (Clear) Urine pH 7.5 (5.0-8.0) pH Units Ur Specific [place] 1.015 (1.010-1.025) Urine Protein 30 H (Neg-Trace) mg/dL Urine Glucose (UA) Normal (Normal) mg/dL - ABG Interpretation ABG results: PT/INR, D-dimer PT 42.8 Seconds (9.4-12.1) H 10/13/16 05:05 Consult Discharge Plan - Plan Referrals: Jeffery Pastor MD [Primary Care Provider] - 1 week
[2016-10-14 05:02] LABS: Basophils % 0.1 %; Eosinophils % 0.3 %; Hematocrit 20.4 % (35.3-44.9); Hemoglobin 6.6 g/dL (11.5-15.4); Immature Granulocytes % 0.7 % (0-4); Lymphocytes # 1.4 K/mcL (0.6-4.6); Lymphocytes % 15.7 %; Mean Corpuscular HGB Conc 32.4 g/dL (31.6-35.5); Mean Corpuscular Hemoglobin 34.2 pg (28.0-33.3); Mean Corpuscular Volume 105.7 fL (83.0-100.0); Mean Platelet Volume 11.1 fL (9.4-12.4); Monocytes # 0.9 K/mcL (0.0-1.3); Monocytes % 10.4 %; Neutrophils # 6.5 K/mcL (1.6-8.9); Platelet Count 108 K/mcL (140-400); Red Blood Count 1.93 M/mcL (3.82-4.97); Red Cell Distribution Width 18.4 % (11.5-14.5); Segmented Neutrophils % 72.8 %
[2016-10-14 05:10] LABS: Prothrombin Time 33.6 Seconds (9.4-12.1)
[2016-10-14 05:22] LABS: Alanine Aminotransferase 19 Units/L (0-55); Albumin/Globulin Ratio 1.8 (1.1-2.2); Alkaline Phosphatase 35 Units/L (38-126); Aspartate Amino Transferase 29 Units/L (5-34); BUN/Creatinine Ratio 36 (6-26); Bilirubin,Total 1.4 mg/dL (0.2-1.2); Blood Urea Nitrogen 27 mg/dL (7-20); Calcium 8.6 mg/dL (8.6-10.8); Carbon Dioxide 24 mEq/L (19-29); Chloride 106 mEq/L (98-109); Globulin 1.7 g/dL (2.4-3.5); Glucose 100 mg/dL (70-99); Osmolality,Calculated 293 (280-300); Potassium 4.3 mEq/L (3.5-4.5); Sodium 139 mEq/L (136-145); Total Protein 4.7 g/dL (6.0-8.3); eGFR For African Americans > 60 (> 60); eGFR For Non-African Americans > 60 (> 60)
[2016-10-14] MEDS: Lisinopril 20 MG TABLET PO SCH (07:32)
[2016-10-14] MEDS: PredniSONE 5 MG TABLET PO SCH (10:15)
[2016-10-14] MEDS: Fluticasone Propionate Nasal 50 MCG/SPRAY BOTTLE NS SCH (10:17)
[2016-10-14] MEDS ORDERED: 0.9 % Sodium Chloride 250 ML ONE (10:22)
[2016-10-14] MEDS ORDERED: Nitrofurantoin (BID) 100 MG CAPSULE PO ONE (14:13)
--- NOTE | 2016-10-14 14:14 | Discharge Summary ---
Date of Encounter: 10/14/16 Time of Encounter: 09:30 - Discharge Diagnosis (1) Femur fracture, right Priority: Primary Status: Acute Qualifiers: Encounter type: subsequent encounter Femur location: greater trochanter Fracture type: closed Fracture alignment: displaced Fracture healing: with routine healing Qualified Code(s): S72.111D - Displaced fracture of greater trochanter of right femur, subsequent encounter for closed fracture with routine healing (2) Hematoma of right thigh Priority: Secondary Status: Acute Qualifiers: Encounter type: subsequent encounter Qualified Code(s): S70.11XD - Contusion of right thigh, subsequent encounter (3) DVT (deep venous thrombosis) Priority: Secondary Status: Acute Qualifiers: DVT location: lower extremity Affected thrombotic vein of extremity: unspecified vein of extremity Laterality: right Chronicity: acute Qualified Code(s): I82.401 - Acute embolism and thrombosis of unspecified deep veins of right lower extremity (4) Hypertension Priority: Secondary Status: Chronic Qualifiers: Hypertension type: essential hypertension Qualified Code(s): I10 - Essential (primary) hypertension (5) Macrocytic anemia Priority: Secondary Status: Chronic (6) UTI (urinary tract infection) Priority: Secondary Status: Acute Qualifiers: Urinary tract infection type: site unspecified Hematuria presence: with hematuria Qualified Code(s): N39.0 - Urinary tract infection, site not specified; R31.9 - Hematuria, unspecified - Discharge Medications Home Medications: Flonase 50 mcg PO DAILY 09/25/16 [History] Alprazolam [Xanax 0.5 MG Tablet] 0.25 mg PO Q6HR PRN #20 tablet 10/09/16 [Rx] Amlodipine [Norvasc] 5 mg PO DAILY #30 tablet 10/09/16 [Rx] Atenolol [Tenormin] 50 mg PO BID #60 tablet 10/09/16 [Rx] Lisinopril [Zestril] 40 mg PO DAILY #60 tablet 10/09/16 [Rx] Omeprazole 20 mg PO DAILY PRN 365 Days 10/09/16 [Rx] OxyCODONE/APAP 10/325 [Percocet 10/325 MG] 1 each PO Q4HR PRN #40 tablet [Rx] PredniSONE 5 mg PO DAILY #5 tablet 10/09/16 [Rx] Terazosin [Hytrin] 10 mg PO HS #60 capsule 10/09/16 [Rx] Warfarin [Coumadin] 3 mg PO DAILY@1800 #45 tablet 10/09/16 [Rx] Allergies/Adverse Reactions: Allergies codeine Allergy (Verified 07/13/16 14:42) Rash Influenza Virus Vaccines Allergy (Verified 10/11/16 14:24) See Comments Penicillins [PCN] Allergy (Verified 07/13/16 14:42) Rash Sulfa (Sulfonamide Antibiotics) Allergy (Verified 07/13/16 14:42) Rash Procedures/tests Complete & Pending: Procedures Performed prior 72 hours Category Date Time Status CT stroke alert head wo con [CT] Stat Cat Scan 10/12/16 06:23 Completed Date of admission: 10/11/16 14:28 Primary care physician: Jeffery Pastor MD - Patient Status Disposition: Transfer Short-Term Hosp Condition: Fair Functional capacity at discharge: bed bound - Discharge Instructions Hospital course: Ms. Joseph is a 80 year old female who was hospitalized at [facility] swing bed October 01-October 09 following hospitalization at [facility] for evaluation for right greater trochanter femur fracture. She was treated nonoperatively at [facility]. Her swing bed course was satisfactory with demonstrated ability to ambulate satisfactory. Upon returning home she was unable to adequately care for all of her needs. Her family felt she was getting weaker and noted she was unable to get out of bed independently. Family contacted Dr. Jeffery Pastor who recommended she be brought to emergency room for reevaluation. Repeat CT scan of right leg in emergency room showed no new fracture and overall decrease in the size of the previously seen large right thigh hematoma. Her mental status seemed to be decreased however from the time of discharge home on October 08. She was admitted to observation bed until further disposition could be made. Initial orders were written by the emergency room physician. I saw her on October 12 and performed a history and physical. Social service consult was made and arrangements were begun for SNF placement. Her hemoglobin decreased to 6.9 on October 12 and she was given 1 unit of packed red blood cells. It peyton to 8.0 the following day but declined to 6.6 on October 14. Her INR had returned to 3.0 (therapeutic range) by October 14. She was given 1 unit of packed red blood cells again on October 14. Her mental status seemed to initially improve but she had waxing and waning of alertness and accuracy in speech over the course of hospitalization. Head CT done in emergency room showed no evidence of hemorrhage. She had no focal neurologic deficit on physical exam otherwise. On October 14 her family requested she be transferred to [facility]. I spoke with the transfer center there and she was accepted in transfer the afternoon of October 14. Urine culture returned showing Escherichia coli. She was started on Levaquin empirically after the culture was drawn but resistance to Levaquin was noted on the sensitivity report. She was given a dose of nitrofurantoin prior to transfer to [facility]. - Time Spent with Patient Total time spent providing and/or coordinating discharge services: - Constitutional Vitals: Temp Pulse Resp BP Pulse Ox 99.1 F 73 16 120/63 95 10/14/16 11:36 10/14/16 11:36 10/14/16 11:36 10/14/16 11:36 10/14/16 11:36
[2016-10-14 14:15] VITALS: BP 145/68
== END 2016-10-14 15:00 | disposition short-term general hospital (02) ==
LOC: EMEROOPIK 11:50 → INPPIK 11:50
PROVIDERS: ADMIT Internal Medicine; ATTEND Internal Medicine

== ENCOUNTER 2017-10-08 18:28 | Observation (INO) ==
--- NOTE | 2017-10-08 18:43 | Emergency Department Note ---
Disposition Clinical Impression: Epigastric pain, Enteritis Leukocytosis Qualifiers: Leukocytosis type: unspecified Qualified Code(s): D72.829 - Elevated white blood cell count, unspecified Disposition: Admitted As Inpatient Condition: Fair Referrals: Jeffery Pastor MD [Primary Care Provider] - Forms: ED Satisfaction Letter, Work/School Release Abdominal Pain HPI - General Chief Complaint: ED Abdominal Pain Stated Complaint: abdominal pain/ dark stools Time Seen by Provider: 10/08/17 18:38 Source: patient, EMS Mode of arrival: EMS Limitations: no limitations Nursing Notes Reviewed: Yes Vital Signs Reviewed: Yes - History of Present Illness HPI Narrative: Patient relates that she has been having nausea vomiting and diarrhea 2-3 times a day since Wednesday. She states she has normal urination she is holding down fluids but she "hurts all over" area she states this actually is mainly pain in the epigastric region. This pain is nonradiating. She denies chest pain, cough or shortness of breath. She denies fevers or chills. She relates she was seen by her family doctor on Wednesday diagnoses a urinary tract infection and a "stomach virus. She states she has called EMS yesterday and came in for evaluation and was started on some metronidazole and Phenergan. She is continuing with nausea and abdominal pains called the squad earlier today was not transported. With persistence of symptoms she has been brought in this evening. She denies any ill exposures. She indicates that she "just feels lousy " and that her abdominal pain will not go away. Pt Subjective Complaint: abdominal pain Onset (ago): day(s) (4) Consistency: constant, Worsening Location: epigastric Pain Severity: moderate Quality: aching, sharp Radiation: none Migration to: no migration Improves with: nothing Worsens with: eating Associated symptoms: Reports: nausea, diarrhea. Denies: vomiting, fever, chills , constipation, dysuria, hematemesis, hematochezia, melena, hematuria, anorexia , syncope - Related Data Home Medications Medication Instructions Recorded Confirmed Flonase 50 mcg PO DAILY PRN 09/25/16 10/07/17 Atenolol [Tenormin] 50 mg PO BID 02/10/17 10/08/17 Donepezil HCl [Aricept] 5 mg PO HS 02/10/17 10/08/17 Lovastatin 40 mg PO HS 02/10/17 10/08/17 Omeprazole 40 mg PO BID 02/10/17 10/08/17 amLODIPine [Norvasc] 5 mg PO DAILY 04/26/17 10/08/17 ALPRAZolam [Xanax 0.25 MG Tablet] 0.25 mg PO TID 10/07/17 10/08/17 Melatonin 5 mg PO HS 10/07/17 10/08/17 Terazosin HCl 10 mg PO HS 10/07/17 10/08/17 Ondansetron ODT [Zofran ODT] 4 mg SL Q6HR 10/08/17 10/08/17 Previous Rx's Medication Instructions Recorded Lisinopril [Zestril] 40 mg PO DAILY #60 tablet 10/09/16 Sucralfate [Carafate] 1 gm PO QIDAC #28 tablet 02/10/17 cephALEXin [Keflex] 500 mg PO QID #40 capsule 10/07/17 metroNIDAZOLE [Flagyl] 500 mg PO TID #21 tablet 10/07/17 Allergies Allergy/AdvReac Type Severity Reaction Status Date / Time aloe vera Allergy Rash Verified 04/26/17 08:29 codeine Allergy Rash Verified 04/26/17 08:29 Influenza Virus Vaccines Allergy See Verified 04/26/17 08:29 Comments Penicillins [PCN] Allergy Rash Verified 04/26/17 08:29 Sulfa (Sulfonamide Allergy Rash Verified 04/26/17 08:29 Antibiotics) All systems ED: reviewed and negative except as stated. Abdominal Pain PMH - Past Medical History Medical history: Reports: arthritis, DVT, GERD, hypertension, other Female Surgical History: Reports: cholecystectomy, hysterectomy, other (Bladder surgery, esophageal surgery) STONE SETTER history: Reports: no STONE SETTER history Psychiatric history: Reports: anxiety - Social History Smoking status: Former smoker Alcohol use: Reports: occasionally Drug use: Reports: none Physical Exam - General Limitations: no limitations General appearance: alert, in no apparent distress, anxious - Head Head exam: atraumatic, normocephalic, normal inspection - Eye Eye exam: Present: normal appearance, PERRL, EOMI. Absent: scleral icterus, conjunctival injection - ENT ENT exam: normal exam, normal oropharynx, mucous membranes moist - Neck Neck exam: Present: normal inspection, full ROM, trachea midline - Chest Chest inspection: Present: normal inspection, symmetric chest wall rise - Respiratory Respiratory exam: Present: normal lung sounds bilaterally. Absent: respiratory distress, wheezes, prolonged expiratory phase - Cardiovascular Cardiovascular exam: Present: regular rate, normal rhythm, normal heart sounds. Absent: tachycardia - Abdominal Exam Abdominal exam: Present: soft, diminished bowel sounds. Absent: distention, guarding, rebound, rigidity, Banks's sign, tenderness at McBurney's Point Abdominal tenderness: Present: epigastrium, moderate - Extremities Exam Extremities exam: Present: normal inspection, full ROM, normal capillary refill. Absent: tenderness, pedal edema - Expanded Lower Extremity Exam Neurovascular/Tendon exam: Present: normal capillary refill. Absent: motor deficit, sensory deficit, tendon deficit Gait: not tested/not observed - Back Exam Back exam: Present: normal inspection, full ROM. Absent: tenderness, CVA tenderness (R), CVA tenderness (L) - Neurological Exam Neurological exam: Present: alert, oriented X3 - Psychiatric Psychiatric exam: Present: normal affect, normal mood - Skin Skin exam: Present: warm, dry, intact, normal color. Absent: diaphoresis, pallor Course Course Narrative: 194: With return of lab work I discussed care with Dr. Goodman. He is comfortable with her continue with IV fluids and starting IV metronidazole and ciprofloxacin. Verbal orders are obtained for observation. This is discussed with the patient who does not feel like she could get by at home. Vital Signs Temperature 98.5 F 10/08/17 18:31 Pulse Rate 92 10/08/17 18:31 Respiratory Rate 14 10/08/17 18:31 Blood Pressure 165/82 10/08/17 18:31 O2 Sat by Pulse Oximetry 95 10/08/17 18:31 Temperature 98.5 F 10/08/17 19:31 Pulse Rate 68 10/08/17 19:31 Respiratory Rate 16 10/08/17 19:31 Blood Pressure 162/70 10/08/17 19:31 O2 Sat by Pulse Oximetry 96 10/08/17 19:31 Oxygen Delivery Oxygen Delivery Room Air Abdominal Pain - Differential Diagnosis Differential Diagnosis: Likely: abdominal pain non-specific, diverticulitis ( Enteritis), gastroenteritis, pancreatitis - Medical Records Medical records reviewed: Yes I reviewed the patient's medical records. Patient was seen in the emergency department yesterday. She had negative flu swab, and white count 13.6, hemoglobin 17.4 negative basic metabolic panel with a glucose of 180 and normal LFTs. She did have a CT performed of the abdomen with results as follows: CT/CT abd pelvis wo no iv no oral IMPRESSION: 1. Some thickening of small bowel loops in the region of the pelvis with some surrounding edema although no evidence of dilation of these loops. Enteritis is likely. 2. Diverticulosis but no acute diverticulitis. 3. No evidence of bowel obstruction or perforation. D/ / 10/07/2017 12:11:23 Su Rojas MD / nelly XR/XR chest 1V portable IMPRESSION: 1. No active pulmonary disease. 2. Cardiomegaly without overt failure. D/ / Wyatt Britton MD / Wyatt Britton MD - Lab Data Lab results reviewed: Yes I reviewed the patient's lab results. Result diagrams: 10/08/17 19:04 10/08/17 19:04 Lab Results 10/08/17 10/08/17 Range/Units 19:04 19:04 WBC 22.5 H D (4.3-11.1) K/mcL RBC 5.03 H (3.82-4.97) M/mcL Hgb 16.8 H (11.5-15.4) g/dL Hct 47.2 H (35.3-44.9) % MCV 93.8 (83.0-100.0) fL MCH 33.4 H (28.0-33.3) pg MCHC 35.6 H (31.6-35.5) g/dL RDW 12.8 (11.5-14.5) % Plt Count 152 (140-400) K/mcL MPV 11.2 (9.4-12.4) fL Immature Gran % 0.6 (0-4) % Seg Neutrophils % 83.8 % Lymphocytes % 8.2 % Monocytes % 7.3 % Eosinophils % 0.0 % Basophils % 0.1 % Neutrophils # 18.9 H (1.6-8.9) K/mcL Lymphocytes # 1.9 (0.6-4.6) K/mcL Monocytes # 1.6 H (0.0-1.3) K/mcL Eosinophils # 0.0 (0.0-0.6) K/mcL Basophils # 0.0 (0.0-0.2) K/mcL Sodium 138 (136-145) mEq/L Potassium 3.5 (3.5-5.1) mEq/L Chloride 105 (98-107) mEq/L Carbon Dioxide 24 (23-29) mEq/L BUN 14 (8-23) mg/dL Creatinine 0.63 (0.60-1.20) mg/dL Est GFR ( Amer) > 60 (> 60) Est GFR (Non-Af Amer) > 60 (> 60) BUN/Creatinine Ratio 22 (6-26) Glucose 149 H (70-105) mg/dL Calculated Osmolality 289 (280-300) Calcium 9.8 (8.6-10.3) mg/dL Amylase 33 (29-103) Units/L Lipase 20 (11-82) Units/L
[2017-10-08] MEDS ORDERED: Ondansetron 4 MG/2 ML VIAL IVP ONE (18:46)
[2017-10-08] MEDS ORDERED: 0.9 % Sodium Chloride 1,000 ML IVC ONE (18:46)
[2017-10-08] MEDS ORDERED: 0.9 % Sodium Chloride 1,000 ML IVC SCH (19:00)
[2017-10-08 19:14] LABS: Basophils % 0.1 %; Hematocrit 47.2 % (35.3-44.9); Hemoglobin 16.8 g/dL (11.5-15.4); Immature Granulocytes % 0.6 % (0-4); Lymphocytes # 1.9 K/mcL (0.6-4.6); Lymphocytes % 8.2 %; Mean Corpuscular HGB Conc 35.6 g/dL (31.6-35.5); Mean Corpuscular Hemoglobin 33.4 pg (28.0-33.3); Mean Corpuscular Volume 93.8 fL (83.0-100.0); Mean Platelet Volume 11.2 fL (9.4-12.4); Monocytes # 1.6 K/mcL (0.0-1.3); Monocytes % 7.3 %; Neutrophils # 18.9 K/mcL (1.6-8.9); Platelet Count 152 K/mcL (140-400); Red Blood Count 5.03 M/mcL (3.82-4.97); Red Cell Distribution Width 12.8 % (11.5-14.5); Segmented Neutrophils % 83.8 %
[2017-10-08 19:37] LABS: Amylase 33 Units/L (29-103); BUN/Creatinine Ratio 22 (6-26); Blood Urea Nitrogen 14 mg/dL (8-23); Calcium 9.8 mg/dL (8.6-10.3); Carbon Dioxide 24 mEq/L (23-29); Chloride 105 mEq/L (98-107); Glucose 149 mg/dL (70-105); Lipase 20 Units/L (11-82); Osmolality,Calculated 289 (280-300); Potassium 3.5 mEq/L (3.5-5.1); Sodium 138 mEq/L (136-145); eGFR For Non-African Americans > 60 (> 60)
[2017-10-08] MEDS ORDERED: MetroNIDAZOLE 500 MG/100 ML 500 MG/100 ML BAG IVPB ONE (19:42)
[2017-10-08] MEDS ORDERED: *HR* OxyCODONE Immed Rel 5 MG TABLET PO ONE (19:43)
[2017-10-08 20:14] LABS: Bilirubin,Urine Negative (Negative); Blood,Urine Trace-lysed (Negative); Clarity,Urine Slightly Cloudy (Clear); Color,Urine Amber (Yellow); Glucose,Urine (UA) 100 mg/dL (Normal); Ketones,Urine Negative (Negative); Leukocyte Esterase,Urine Small (Negative); Nitrite,Urine Negative (Negative); PH,Urine 6.5 pH Units (5.0-8.0); Protein,Urine 100 mg/dL (Neg-Trace); Urobilinogen,Urine Normal (Normal)
[2017-10-08] MEDS ORDERED: Acetaminophen 325 MG TABLET PO PRN (20:43)
[2017-10-08] MEDS ORDERED: Naloxone 0.4 MG/ML INJ IVP PRN (20:43)
[2017-10-08 20:55] LABS: Hyaline Casts,Urine Few per lpf (None-Few); RBC,Urine 0-3 per hpf (0-3); Squamous Epithelial Cell,Urine Moderate per lpf (None-Few); WBC,Urine 50-100 per hpf (0-3)
[2017-10-08 20:56] LABS: Bacteria,Urine Moderate per hpf (None-Few); Mucus,Urine Few (Few)
[2017-10-08] MEDS: Sucralfate 1 GM TABLET PO SCH (22:10)
[2017-10-08] MEDS: Melatonin 3 MG TABLET PO SCH (22:10)
[2017-10-08] MEDS: ALPRAZolam 0.25 MG TABLET PO SCH (22:11)
[2017-10-09] MEDS: Ondansetron ODT 4 MG TAB.RAPDIS SL SCH ×6 (00:01→23:17)
[2017-10-09] MEDS: 0.9 % Sodium Chloride 1,000 ML IVC SCH ×2 (05:13→13:56)
[2017-10-09] MEDS: MetroNIDAZOLE 500 MG/100 ML 500 MG/100 ML BAG IVPB SCH ×2 (05:13→12:16)
[2017-10-09] MEDS: *HR* HYDROcodone/Acet 5/325 mg TABLET PO PRN ×3 (06:33→19:02)
[2017-10-09] MEDS: Sucralfate 1 GM TABLET PO SCH ×4 (08:55→21:00)
[2017-10-09] MEDS: ALPRAZolam 0.25 MG TABLET PO SCH ×3 (08:56→20:58)
[2017-10-09] MEDS: Ondansetron 4 MG/2 ML VIAL IVP PRN (08:56)
--- NOTE | 2017-10-09 14:52 | Internal Med History&Physical ---
Date of Encounter: 10/09/17 Time of Encounter: 14:15 Assessment and Plan (1) Gastroenteritis Current visit: No Status: Acute Will check stool for C. difficile. She has been started on IV Flagyl. I will change her to oral Flagyl pending C. difficile result. Etiology possibly viral. (2) Hypertension Current visit: No Status: Chronic Will hold lisinopril and Norvasc since she has borderline hypotension. Qualifiers: Hypertension type: essential hypertension Qualified Code(s): I10 - Essential (primary) hypertension (3) UTI (urinary tract infection) Current visit: No Status: Acute Urine culture showed Escherichia coli resistant to Cipro. She will be started on Macrobid. Qualifiers: Urinary tract infection type: site unspecified Hematuria presence: with hematuria Qualified Code(s): N39.0 - Urinary tract infection, site not specified; R31.9 - Hematuria, unspecified Internal Medicine - H&P: HPI Chief complaint: Diarrhea, abdominal pain Admitted From: Emergency Dept Plans for Post Hospital Care: Home History of present illness: Ms. Joseph is a 81 year old female who returned to emergency room the evening of October 08 stating she was unimproved after receiving prescriptions for Flagyl and Keflex in the emergency room the previous day for gastroenteritis with possible UTI. She continued to have abdominal discomfort and reports nausea but no vomiting. She states she had dark black diarrhea stools. She denies fevers or chills. She was admitted to [facility] floor for ongoing care needs. She states she is still having some abdominal discomfort primarily in the upper abdominal area. She denies previous similar episodes. Denies close contacts with similar symptoms. She had received prescription for Cipro on October 05 after she reported by phone to her PCP she was having UTI symptoms. She states she took 2 doses of Cipro but did not feel improved and has not taken additional medication. Her GI history is pertinent for cholecystectomy and Shelly fundoplication. She denies disorders of her liver or exocrine pancreas. Past Med Surg Social Fam HX - Past Medical History Medical history: arthritis, CVA, DVT, GERD, hypertension, other Psychiatric history: anxiety - Past Surgical History Surgical History: hysterectomy - Social History Smoking Status: Former smoker Smokeless Tobacco Status: No Alcohol use: occasionally Drug use: none - Family History Mother Adopted: No Living Status: Hx Family Cardiac Disorders: No Hx Family Respiratory Disorders: No Hx Family Cancer: No Hx Family GI Disorders: No Hx Family Endocrine Disorder: No Hx Family Neuromuscular Disorders: No Hx Family Neurologic Disorders: No Hx Family HEENT Disorders: No Hx Family Autoimmune Disorders: No Father Adopted: No Living Status: Internal Medicine - H&P: Meds Flonase 50 mcg PO DAILY PRN 09/25/16 [History] Lisinopril [Zestril] 40 mg PO DAILY #60 tablet 10/09/16 [Rx] Atenolol [Tenormin] 50 mg PO BID 02/10/17 [History] Donepezil HCl [Aricept] 5 mg PO HS 02/10/17 [History] Lovastatin 40 mg PO HS 02/10/17 [History] Omeprazole 40 mg PO BID 02/10/17 [History] Sucralfate [Carafate] 1 gm PO QIDAC #28 tablet 02/10/17 [Rx] amLODIPine [Norvasc] 5 mg PO DAILY 04/26/17 [History] ALPRAZolam [Xanax 0.25 MG Tablet] 0.25 mg PO TID 10/07/17 [History] Melatonin 5 mg PO HS 10/07/17 [History] Terazosin HCl 10 mg PO HS 10/07/17 [History] cephALEXin [Keflex] 500 mg PO QID #40 capsule 10/07/17 [Rx] metroNIDAZOLE [Flagyl] 500 mg PO TID #21 tablet 10/07/17 [Rx] Ondansetron ODT [Zofran ODT] 4 mg SL Q6HR 10/08/17 [History] 3 Allergy/AdvReac Type Severity Reaction Status Date / Time aloe vera Allergy Rash Verified 04/26/17 08:29 ciprofloxacin Allergy See Verified 10/09/17 00:00 Comments codeine Allergy Rash Verified 04/26/17 08:29 Influenza Virus Vaccines Allergy See Verified 04/26/17 08:29 Comments Penicillins [PCN] Allergy Rash Verified 04/26/17 08:29 Sulfa (Sulfonamide Allergy Rash Verified 04/26/17 08:29 Antibiotics) All Systems PM: A 10-system review of systems was performed and is negative for pertinent findings except as documented above in the HPI. Review of systems: Gen.: Her weight has decreased from 81.601 kg on 10/12/2016 to 68.492 kg on admission. Cardiovascular: She had right leg DVT September 2016 and was placed on Coumadin therapy. She has a history of hypertension but denies PR heart failure or angina. She thinks she had an exercise stress test approximately 2011. Respiratory: She smoked from approximately age [age] never exceeding one third pack per day. She denies chronic lung disease GI: She has had cholecystectomy but denies disorders of her liver or exocrine pancreas : She denies hematuria dysuria or kidney stones Neurologic: She denies large distribution strokes or seizures. CT scan done October 2016 showed old left thalamus lacunar infarct. Endocrine: She has hyperlipidemia but denies diabetes or thyroid disease Hematology/oncology: She has history of anemia which has resolved. She denies internal malignancies or other blood disorders. Psychiatric: She has had anxiety and depression in the past but has not received treatment recently. She denies other mental health issues Musk skeletal: She has DJD and had lumbar laminectomy with fusion approximately January 2008 at [facility]. She denies gout or other bone joint or muscle disorders. - Constitutional Vitals: Temp Pulse Resp BP Pulse Ox 97.8 F 57 18 117/60 95 10/09/17 11:00 10/09/17 11:00 10/09/17 11:00 10/09/17 11:10/09/17 11:00 Exam: Gen.: She is a well-developed well-nourished female resting comfortably in bed who appears in no acute distress HEENT: Head is atraumatic and normocephalic. Eyes: EOMI. There is no scleral icterus. Mouth: Mucosa is moist. Neck: Supple and nontender. There is no thyromegaly or adenopathy noted. Heart: Regular without murmurs gallops or ectopics Lungs: No wheezes or crackles are heard. Abdomen: Bowel sounds are diminished. There is mild tenderness to palpation in the upper epigastric area. No guarding or rebound is noted. Extremities: There is no cyanosis edema or clubbing noted. Dorsalis pedis and posttibial pulses are 1-2 over 2 bilaterally. Neurologic: Mental status: She is talkative and a good historian. Cranial nerves: Smile is symmetric. Forehead wrinkles bilaterally. Tongue protrudes midline. EOMI. Motor: There is no pronator drift. Cerebellar: Finger to nose is intact bilaterally. Skin: Warm and dry Internal Med - H&P Results - Labs CBC & Chem 7: 10/08/17 19:04 10/08/17 19:04
[2017-10-09] MEDS: 0.45 % Sodium Chloride w/KCl 20 MEQ/1,000 ML MLS IVC SCH (15:17)
[2017-10-09] MEDS: *HR* OxyCODONE Immed Rel 5 MG TABLET PO PRN ×2 (15:18→22:21)
[2017-10-09] MEDS: Lisinopril 20 MG TABLET PO SCH (15:19)
[2017-10-09] MEDS: amLODIPine 5 MG TABLET PO SCH (15:19)
[2017-10-09] MEDS: Nitrofurantoin (BID) 100 MG CAPSULE PO SCH (17:26)
[2017-10-09] MEDS: metroNIDAZOLE 500 MG TABLET PO SCH ×2 (17:30→23:17)
[2017-10-09] MEDS: Melatonin 3 MG TABLET PO SCH (20:57)
[2017-10-10] MEDS: 0.45 % Sodium Chloride w/KCl 20 MEQ/1,000 ML MLS IVC SCH ×3 (01:29→21:39)
[2017-10-10] MEDS: Ondansetron ODT 4 MG TAB.RAPDIS SL SCH ×6 (03:32→23:44)
[2017-10-10] MEDS: *HR* HYDROcodone/Acet 5/325 mg TABLET PO PRN ×2 (03:48→21:45)
[2017-10-10] MEDS: 0.9 % Sodium Chloride 1,000 ML IVC SCH (03:55)
[2017-10-10 04:04] LABS: Basophils % 0.1 %; Eosinophils % 0.2 %; Hematocrit 41.4 % (35.3-44.9); Hemoglobin 13.9 g/dL (11.5-15.4); Immature Granulocytes % 0.6 % (0-4); Lymphocytes # 2.2 K/mcL (0.6-4.6); Lymphocytes % 12.5 %; Mean Corpuscular HGB Conc 33.6 g/dL (31.6-35.5); Mean Corpuscular Hemoglobin 32.8 pg (28.0-33.3); Mean Corpuscular Volume 97.6 fL (83.0-100.0); Mean Platelet Volume 10.7 fL (9.4-12.4); Monocytes # 1.1 K/mcL (0.0-1.3); Neutrophils # 14.1 K/mcL (1.6-8.9); Platelet Count 102 K/mcL (140-400); Red Blood Count 4.24 M/mcL (3.82-4.97); Red Cell Distribution Width 13.1 % (11.5-14.5); Segmented Neutrophils % 80.6 %
[2017-10-10 04:21] LABS: Alanine Aminotransferase 9 Units/L (7-52); Albumin/Globulin Ratio 1.8 (1.1-2.2); Alkaline Phosphatase 39 Units/L (34-104); Aspartate Amino Transferase 12 Units/L (13-39); BUN/Creatinine Ratio 18 (6-26); Bilirubin,Total 0.8 mg/dL (0.3-1.0); Blood Urea Nitrogen 13 mg/dL (8-23); Calcium 8.7 mg/dL (8.6-10.3); Carbon Dioxide 24 mEq/L (23-29); Chloride 111 mEq/L (98-107); Globulin 1.7 g/dL (2.4-3.5); Glucose 108 mg/dL (70-105); Magnesium 1.8 mg/dL (1.6-2.6); Osmolality,Calculated 291 (280-300); Potassium 3.7 mEq/L (3.5-5.1); Sodium 140 mEq/L (136-145); Total Protein 4.7 g/dL (6.4-8.9); eGFR For Non-African Americans > 60 (> 60)
[2017-10-10] MEDS: *HR* OxyCODONE Immed Rel 5 MG TABLET PO PRN (06:27)
[2017-10-10] MEDS: Sucralfate 1 GM TABLET PO SCH ×4 (06:30→21:35)
[2017-10-10] MEDS: Lisinopril 20 MG TABLET PO SCH (09:11)
[2017-10-10] MEDS: amLODIPine 5 MG TABLET PO SCH (09:11)
[2017-10-10] MEDS: Nitrofurantoin (BID) 100 MG CAPSULE PO SCH ×2 (09:11→16:34)
[2017-10-10] MEDS: ALPRAZolam 0.25 MG TABLET PO SCH ×3 (09:16→21:35)
[2017-10-10] MEDS: metroNIDAZOLE 500 MG TABLET PO SCH ×2 (09:16→16:35)
--- NOTE | 2017-10-10 09:48 | Internal Med Progress Note ---
Date of Encounter: 10/10/17 Time of Encounter: 09:40 - Assessment and plan (1) Gastroenteritis Current Visit: No Status: Acute Assessment and plan: October 10. Continue oral Flagyl. C. difficile report has not returned. Anticipate discharge tomorrow if stable. (2) Hypertension Current Visit: No Status: Chronic Assessment and plan: October 10. Continue to hold lisinopril and Norvasc. Qualifiers: Hypertension type: essential hypertension Qualified Code(s): I10 - Essential (primary) hypertension (3) UTI (urinary tract infection) Current Visit: No Status: Acute Assessment and plan: October 10. Continue Macrobid. Qualifiers: Urinary tract infection type: site unspecified Hematuria presence: with hematuria Qualified Code(s): N39.0 - Urinary tract infection, site not specified; R31.9 - Hematuria, unspecified - Subjective Interval history: October 10. She has no new complaints and feels better. Her diarrhea has lessened. She has no vomiting. - Constitutional Vitals: Temp Pulse Resp BP Pulse Ox 98.1 F 64 12 127/64 93 10/10/17 06:40 10/10/17 06:40 10/10/17 06:40 10/10/17 06:40 10/10/17 06:40 Exam: She is resting comfortably in bed and appears in no acute distress. Her affect is bright and cheerful. I reviewed her medications and lab results. Internal Medicine: Result - Labs CBC & Chem 7: 10/10/17 03:52 10/10/17 03:52 Labs: Short CBC 10/10/17 Range/Units 03:52 WBC 17.5 H (4.3-11.1) K/mcL Hgb 13.9 D (11.5-15.4) g/dL Hct 41.4 (35.3-44.9) % Plt Count 102 L (140-400) K/mcL Neutrophils # 14.1 H (1.6-8.9) K/mcL BMP 10/10/17 03:52 Sodium 140 Potassium 3.7 Chloride 111 H Carbon Dioxide 24 BUN 13 Creatinine 0.72 Glucose 108 H Calcium 8.7 Liver Function 10/10/17 Range/Units 03:52 Total Bilirubin 0.8 (0.3-1.0) mg/dL AST 12 L (13-39) Units/L ALT 9 (7-52) Units/L Alkaline Phosphatase 39 (34-104) Units/L Albumin 3.0 L (3.5-5.7) g/dL Consult Discharge Plan - Plan Referrals: Jeffery Pastor MD [Primary Care Provider] - 1 week
[2017-10-10] MEDS: Melatonin 3 MG TABLET PO SCH (21:35)
[2017-10-11] MEDS: metroNIDAZOLE 500 MG TABLET PO SCH ×3 (02:32→15:07)
[2017-10-11] MEDS: Ondansetron ODT 4 MG TAB.RAPDIS SL SCH ×5 (02:33→21:04)
[2017-10-11] MEDS: *HR* HYDROcodone/Acet 5/325 mg TABLET PO PRN ×2 (06:12→17:49)
[2017-10-11] MEDS: Sucralfate 1 GM TABLET PO SCH ×4 (06:13→21:04)
[2017-10-11] MEDS: 0.45 % Sodium Chloride w/KCl 20 MEQ/1,000 ML MLS IVC SCH ×2 (06:15→15:13)
[2017-10-11] MEDS: *HR* OxyCODONE Immed Rel 5 MG TABLET PO PRN (08:44)
[2017-10-11] MEDS: Ondansetron 4 MG/2 ML VIAL IVP PRN (08:44)
[2017-10-11] MEDS: ALPRAZolam 0.25 MG TABLET PO SCH ×3 (08:45→21:05)
[2017-10-11] MEDS: amLODIPine 5 MG TABLET PO SCH (08:45)
[2017-10-11] MEDS: Nitrofurantoin (BID) 100 MG CAPSULE PO SCH ×3 (10:47→17:09)
[2017-10-11] MEDS: Lisinopril 20 MG TABLET PO SCH (10:51)
--- NOTE | 2017-10-11 11:06 | Internal Med Progress Note ---
Date of Encounter: 10/11/17 Time of Encounter: 10:58 - Assessment and plan (1) Gastroenteritis Current Visit: No Status: Acute Assessment and plan: October 10. Continue oral Flagyl. C. difficile report has not returned. Anticipate discharge tomorrow if stable. October 11. Diarrhea has resolved and C. difficile order has been canceled. Continue oral Flagyl. We will recheck labs in a.m. (2) Hypertension Current Visit: No Status: Chronic Assessment and plan: October 10. Continue to hold lisinopril and Norvasc. Qualifiers: Hypertension type: essential hypertension Qualified Code(s): I10 - Essential (primary) hypertension (3) UTI (urinary tract infection) Current Visit: No Status: Acute Assessment and plan: October 10. Continue Macrobid. Qualifiers: Urinary tract infection type: site unspecified Hematuria presence: with hematuria Qualified Code(s): N39.0 - Urinary tract infection, site not specified; R31.9 - Hematuria, unspecified - Subjective Interval history: October 10. She has no new complaints and feels better. Her diarrhea has lessened. She has no vomiting. October 11. She denies vomiting or diarrhea. She states she still has some abdominal discomfort. - Constitutional Vitals: Temp Pulse Resp BP Pulse Ox 98.8 F 58 18 125/60 95 10/11/17 10:48 10/11/17 10:48 10/11/17 10:48 10/11/17 10:48 10/11/17 10:48 Exam: She is resting fairly comfortably in bed. Bowel sounds are present and slightly hyperactive. There is minimal tenderness to palpation in the epigastric area. I reviewed her medications and lab results. Internal Medicine: Result - Labs CBC & Chem 7: 10/10/17 03:52 10/10/17 03:52 Consult Discharge Plan - Plan Referrals: Jeffery Pastor MD [Primary Care Provider] - 1 week
[2017-10-11] MEDS: Melatonin 3 MG TABLET PO SCH (21:05)
[2017-10-12] MEDS: *HR* HYDROcodone/Acet 5/325 mg TABLET PO PRN (01:08)
[2017-10-12] MEDS: Ondansetron ODT 4 MG TAB.RAPDIS SL SCH ×3 (01:08→06:08)
[2017-10-12] MEDS: metroNIDAZOLE 500 MG TABLET PO SCH ×2 (01:08→07:49)
[2017-10-12] MEDS: *HR* OxyCODONE Immed Rel 5 MG TABLET PO PRN (03:14)
[2017-10-12 06:00] LABS: Basophils % 0.4 %; Eosinophils # 0.2 K/mcL (0.0-0.6); Eosinophils % 1.9 %; Hematocrit 39.1 % (35.3-44.9); Hemoglobin 13.2 g/dL (11.5-15.4); Immature Granulocytes % 0.4 % (0-4); Lymphocytes # 1.9 K/mcL (0.6-4.6); Lymphocytes % 18.3 %; Mean Corpuscular HGB Conc 33.8 g/dL (31.6-35.5); Mean Corpuscular Hemoglobin 33.2 pg (28.0-33.3); Mean Corpuscular Volume 98.5 fL (83.0-100.0); Mean Platelet Volume 11.5 fL (9.4-12.4); Monocytes % 9.7 %; Neutrophils # 7.3 K/mcL (1.6-8.9); Platelet Count 107 K/mcL (140-400); Red Blood Count 3.97 M/mcL (3.82-4.97); Red Cell Distribution Width 13.2 % (11.5-14.5); Segmented Neutrophils % 69.3 %
[2017-10-12 06:21] LABS: BUN/Creatinine Ratio 12 (6-26); Blood Urea Nitrogen 9 mg/dL (8-23); Calcium 8.6 mg/dL (8.6-10.3); Carbon Dioxide 26 mEq/L (23-29); Chloride 107 mEq/L (98-107); Glucose 96 mg/dL (70-105); Osmolality,Calculated 283 (280-300); Potassium 3.8 mEq/L (3.5-5.1); Sodium 137 mEq/L (136-145); eGFR For Non-African Americans > 60 (> 60)
[2017-10-12] MEDS: 0.45 % Sodium Chloride w/KCl 20 MEQ/1,000 ML MLS IVC SCH (06:26)
[2017-10-12 06:49] VITALS: BP 122/54
[2017-10-12] MEDS: Lisinopril 20 MG TABLET PO SCH (07:49)
[2017-10-12] MEDS: ALPRAZolam 0.25 MG TABLET PO SCH (07:50)
[2017-10-12] MEDS: Sucralfate 1 GM TABLET PO SCH (07:50)
[2017-10-12] MEDS: Nitrofurantoin (BID) 100 MG CAPSULE PO SCH (07:50)
[2017-10-12] MEDS: amLODIPine 5 MG TABLET PO SCH (07:50)
--- NOTE | 2017-10-12 12:11 | Discharge Summary ---
Date of Encounter: 10/12/17 Time of Encounter: 12:00 - Discharge Diagnosis (1) Gastroenteritis Priority: Primary Status: Acute (2) Hypertension Priority: Secondary Status: Chronic Qualifiers: Hypertension type: essential hypertension Qualified Code(s): I10 - Essential (primary) hypertension (3) UTI (urinary tract infection) Priority: Secondary Status: Acute Qualifiers: Urinary tract infection type: site unspecified Hematuria presence: with hematuria Qualified Code(s): N39.0 - Urinary tract infection, site not specified; R31.9 - Hematuria, unspecified - Discharge Medications Prescriptions: HYDROcodone/Acet 5/325 mg [[place] 5-325 mg] 1 tab PO Q6HR PRN 2 Days #6 tablet PRN Reason: Moderate Pain Home Medications: Flonase 50 mcg PO DAILY PRN 09/25/16 [History] Lisinopril [Zestril] 40 mg PO DAILY #60 tablet 10/09/16 [Rx] Atenolol [Tenormin] 50 mg PO BID 02/10/17 [History] Donepezil HCl [Aricept] 5 mg PO HS 02/10/17 [History] Lovastatin 40 mg PO HS 02/10/17 [History] Omeprazole 40 mg PO BID 02/10/17 [History] Sucralfate [Carafate] 1 gm PO QIDAC #28 tablet 02/10/17 [Rx] amLODIPine [Norvasc] 5 mg PO DAILY 04/26/17 [History] ALPRAZolam [Xanax 0.25 MG Tablet] 0.25 mg PO TID 10/07/17 [History] Melatonin 5 mg PO HS 10/07/17 [History] Terazosin HCl 10 mg PO HS 10/07/17 [History] metroNIDAZOLE [Flagyl] 500 mg PO TID #21 tablet 10/07/17 [Rx] Ondansetron ODT [Zofran ODT] 4 mg SL Q6HR 10/08/17 [History] HYDROcodone/Acet 5/325 mg [[place] 5-325 mg] 1 tab PO Q6HR PRN 2 Days #6 tablet [Rx] Allergies/Adverse Reactions: 3 Allergy/AdvReac Type Severity Reaction Status Date / Time aloe vera Allergy Rash Verified 04/26/17 08:29 ciprofloxacin Allergy See Verified 10/09/17 00:00 Comments codeine Allergy Rash Verified 04/26/17 08:29 Influenza Virus Vaccines Allergy See Verified 04/26/17 08:29 Comments Penicillins [PCN] Allergy Rash Verified 04/26/17 08:29 Sulfa (Sulfonamide Allergy Rash Verified 04/26/17 08:29 Antibiotics) Date of admission: 10/08/17 20:07 Primary care physician: Jeffery Pastor MD Consults: 10/11/17 11:50 Consult to Occupational Therapy [CONS] Routine Comment: Evaluate, develop and implement POC Reason for Consult: Weakness Consult to Physical Therapy [CONS] Routine Comment: Evaluate, develop and implement POC Reason for Consult: Weakness - Patient Status Disposition: Home, Self-Care Condition: Fair Overall status at discharge: patient is progressing back to baseline - Discharge Instructions Follow Up With: Jeffery Pastor MD [Primary Care Provider] - 1 week - Diet and Activity Activity: resume usual activities as tolerated Diet: advance to your usual diet Hospital course: Ms. Joseph is a 81 year old female who returned to emergency room the evening of October 08 stating she was unimproved after receiving prescriptions for Flagyl and Keflex in the emergency room the previous day for gastroenteritis with possible UTI. She continued to have abdominal discomfort and reports nausea but no vomiting. She states she had dark black diarrhea stools. She denies fevers or chills. She was admitted to [facility] for ongoing care needs. Initial orders were written by the emergency room physician. I saw her on October 09 and performed the history and physical. She was initially given IV Flagyl in emergency room. I changed her to oral Flagyl. IV fluids were given. She had clinical improvement with normalization of WBC 10.5 and resolution of left shift prior to discharge. She had no vomiting after the first hospital day. She still had some abdominal discomfort but seemed overall clinically improving when I saw her October 12 and she wished to be discharged home. She will follow with her PCP Dr. Jeffery Pastor within 1 week. Review of urine culture from outpatient collection showed Escherichia coli with resistance to Cipro. She was given Macrobid during hospitalization but this will not be continued at discharge. She will continue oral Flagyl but discontinue Keflex prescribed prior to going to emergency room. - Time Spent with Patient Total time spent providing and/or coordinating discharge services: - Constitutional Vitals: Temp Pulse Resp BP Pulse Ox 98.2 F 60 17 122/54 93 10/12/17 06:49 10/12/17 06:49 10/12/17 06:49 10/12/17 06:49 10/12/17 06:49
== END 2017-10-12 14:00 | disposition home or self-care (01) ==
LOC: EMEROOPIK 18:28 → INPPIK 18:28
PROVIDERS: ADMIT Internal Medicine; ATTEND Internal Medicine

== ENCOUNTER 2017-10-14 12:26 | Observation (INO) ==
[2017-10-14] MEDS ORDERED: 0.9 % Sodium Chloride 1,000 ML IVC ONE (12:41)
--- NOTE | 2017-10-14 12:42 | Emergency Department Note ---
Disposition Clinical Impression: Enteritis Abdominal pain Qualifiers: Abdominal location: generalized Qualified Code(s): R10.84 - Generalized abdominal pain Disposition: Admitted As Inpatient Condition: Fair Referrals: Jeffery Pastor MD [Primary Care Provider] - Forms: ED Satisfaction Letter, Work/School Release Nausea/Vomiting/Diarrhea HPI - General Chief complaint: ED Abdominal Pain Stated complaint: diarrhea, abdominal pain Time Seen by Provider: 10/14/17 12:40 Source: patient, EMS Mode of arrival: EMS Limitations: no limitations Nursing Notes Reviewed: Yes Vital Signs Reviewed: Yes - History of Present Illness HPI Narrative: Patient presents with a history of discharge from the hospital for diarrhea she states 2 days ago. She is continued with diarrhea and states she had 3 episodes today. This stool is dark and she denies taking Pepto-Bismol or iron. She has nausea or vomiting. She does report epigastric pains that are sharp and nonradiating. She has urinary frequency and states she's had a recent urinary tract infection. She has had increased weakness and dizziness. She has had decreased oral intake and states she tried some rice to try to slow down her bowels but it hasn't worked. She denies fevers, chills, headache or flank pain. She is concerned that her epigastric could be somehow related to a remote esophageal surgery she had. She arrives here alert, pink, warm and dry by EMS with normal vital signs and Accu-Chek of 138. She states that she hope she can be admitted and get this "straightened out". Pt Subjective Complaint: diarrhea Onset (ago): day(s) Description of Diarrhea: water Associated Abdominal Pain: Yes If pain, Location of pain: epigastric Severity: moderate Quality: sharp Consistency: constant Improves with: nothing Worsens with: eating Associated symptoms: Reports: loss of appetite, malaise, weakness. Denies: myalgias, chest pain, cough, diaphoresis, fever/chills, headaches, nausea/ vomiting, rash, dysuria, shortness of breath, syncope - Related Data Home Medications Medication Instructions Recorded Confirmed Flonase 50 mcg PO DAILY PRN 09/25/16 10/14/17 Atenolol [Tenormin] 50 mg PO BID 02/10/17 10/14/17 Donepezil HCl [Aricept] 5 mg PO HS 02/10/17 10/14/17 Lovastatin 40 mg PO HS 02/10/17 10/14/17 Omeprazole 40 mg PO BID 02/10/17 10/14/17 amLODIPine [Norvasc] 5 mg PO DAILY 04/26/17 10/14/17 Melatonin 5 mg PO HS 10/07/17 10/14/17 Terazosin HCl 10 mg PO HS 10/07/17 10/14/17 Cephalexin [Keflex] 500 mg PO QID 10/14/17 10/14/17 Previous Rx's Medication Instructions Recorded Lisinopril [Zestril] 40 mg PO DAILY #60 tablet 10/09/16 Sucralfate [Carafate] 1 gm PO QIDAC #28 tablet 02/10/17 metroNIDAZOLE [Flagyl] 500 mg PO TID #21 tablet 10/07/17 HYDROcodone/Acet 5/325 mg [[place] 1 tab PO Q6HR PRN 2 Days #6 tablet 10/12/17 5-325 mg] Allergies Allergy/AdvReac Type Severity Reaction Status Date / Time aloe vera Allergy Rash Verified 10/14/17 12:28 ciprofloxacin Allergy See Verified 10/14/17 12:28 Comments codeine Allergy Rash Verified 10/14/17 12:28 Influenza Virus Vaccines Allergy See Verified 10/14/17 12:28 Comments Penicillins [PCN] Allergy Rash Verified 10/14/17 12:28 Sulfa (Sulfonamide Allergy Rash Verified 10/14/17 12:28 Antibiotics) All systems ED: reviewed and negative except as stated. Past Medical History - Past Medical History Attestation: Yes The following information was validated with the patient. 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 Absent: conjunctival injection - ENT ENT exam: normal exam, normal oropharynx, mucous membranes moist - Neck Neck exam: Present: normal inspection, full ROM, trachea midline - Chest Chest inspection: Present: normal inspection, symmetric chest wall rise. Absent : tenderness - Respiratory Respiratory exam: Present: normal lung sounds bilaterally. Absent: respiratory distress, wheezes, prolonged expiratory phase - Cardiovascular Cardiovascular exam: Present: regular rate, normal rhythm, normal heart sounds. Absent: tachycardia - Abdominal Exam Abdominal exam: Present: soft, diminished bowel sounds. Absent: distention, guarding, rebound, rigidity Abdominal tenderness: Present: epigastrium, moderate - Extremities Exam Extremities exam: Present: normal inspection, full ROM, normal capillary refill. Absent: tenderness, pedal edema - Expanded Lower Extremity Exam Neurovascular/Tendon exam: Present: normal capillary refill. Absent: motor deficit, sensory deficit, tendon deficit Gait: not tested/not observed - Back Exam Back exam: Present: normal inspection, full ROM. Absent: tenderness, CVA tenderness (R), CVA tenderness (L) - Neurological Exam Neurological exam: Present: alert, oriented X3 - Psychiatric Psychiatric exam: Present: normal affect, normal mood - Skin Skin exam: Present: warm, dry, intact, normal color. Absent: rash, diaphoresis , pallor Course Course Narrative: 1335: Care has been discussed with Dr. Goodman. He might have social science professor help with this patient and she may ultimately need rehabilitation placement. Vital Signs Temperature 98.4 F 10/14/17 12:34 Pulse Rate 82 10/14/17 12:34 Respiratory Rate 18 10/14/17 12:34 Blood Pressure 135/86 10/14/17 12:34 O2 Sat by Pulse Oximetry 97 10/14/17 12:34 Temperature 98.4 F 10/14/17 12:34 Pulse Rate 82 10/14/17 12:34 Respiratory Rate 18 10/14/17 12:34 Blood Pressure 135/86 10/14/17 12:34 O2 Sat by Pulse Oximetry 97 10/14/17 12:34 Oxygen Delivery Oxygen Delivery Room Air Nausea/Vomiting/Diarrhea - Differential Diagnosis Likely: food poisoning, gastroenteritis, dehydration - Medical Records Medical records reviewed: Yes I reviewed the patient's medical records. - Lab Data Lab results reviewed: Yes I reviewed the patient's lab results. Result diagrams: 10/14/17 13:02 10/14/17 13:02 Lab Results 10/14/17 10/14/17 10/14/17 Range/Units 13:02 13:02 13:02 WBC 7.2 (4.3-11.1) K/mcL RBC 4.18 (3.82-4.97) M/mcL Hgb 14.0 (11.5-15.4) g/dL Hct 41.2 (35.3-44.9) % MCV 98.6 (83.0-100.0) fL MCH 33.5 H (28.0-33.3) pg MCHC 34.0 (31.6-35.5) g/dL RDW 13.2 (11.5-14.5) % Plt Count 123 L (140-400) K/mcL MPV 11.7 (9.4-12.4) fL Immature Gran % 0.3 (0-4) % Seg Neutrophils % 62.0 % Lymphocytes % 18.9 % Monocytes % 17.7 % Eosinophils % 0.7 % Basophils % 0.4 % Neutrophils # 4.5 (1.6-8.9) K/mcL Lymphocytes # 1.4 (0.6-4.6) K/mcL Monocytes # 1.3 (0.0-1.3) K/mcL Eosinophils # 0.1 (0.0-0.6) K/mcL Basophils # 0.0 (0.0-0.2) K/mcL PT 12.7 H (9.4-12.1) Seconds INR 1.2 APTT 33.1 (26.0-36.0) Seconds Sodium 142 (136-145) mEq/L Potassium 3.0 L (3.5-5.1) mEq/L Chloride 108 H (98-107) mEq/L Carbon Dioxide 28 (23-29) mEq/L BUN 6 L (8-23) mg/dL Creatinine 0.63 (0.60-1.20) mg/dL Est GFR ( Amer) > 60 (> 60) Est GFR (Non-Af Amer) > 60 (> 60) BUN/Creatinine Ratio 10 (6-26) Glucose 116 H (70-105) mg/dL Calculated Osmolality 293 (280-300) Lactic Acid (0.5-2.2) mmol/L Calcium 9.0 (8.6-10.3) mg/dL Total Bilirubin 0.4 (0.3-1.0) mg/dL Direct Bilirubin 0.1 (0.0-0.2) mg/dL Indirect Bilirubin 0.3 (0.0-1.2) mg/dL AST 26 (13-39) Units/L ALT 23 (7-52) Units/L Alkaline Phosphatase 82 (34-104) Units/L Serum Total Protein 5.0 L (6.4-8.9) g/dL Albumin 3.3 L (3.5-5.7) g/dL Globulin 1.7 L (2.4-3.5) g/dL Albumin/Globulin Ratio 1.9 (1.1-2.2) Amylase 13 L (29-103) Units/L Lipase 25 (11-82) Units/L /04/23 Range/Units 13:02 WBC (4.3-11.1) K/mcL RBC (3.82-4.97) M/mcL Hgb (11.5-15.4) g/dL Hct (35.3-44.9) % MCV (83.0-100.0) fL MCH (28.0-33.3) pg MCHC (31.6-35.5) g/dL RDW (11.5-14.5) % Plt Count (140-400) K/mcL MPV (9.4-12.4) fL Immature Gran % (0-4) % Seg Neutrophils % % Lymphocytes % % Monocytes % % Eosinophils % % Basophils % % Neutrophils # (1.6-8.9) K/mcL Lymphocytes # (0.6-4.6) K/mcL Monocytes # (0.0-1.3) K/mcL Eosinophils # (0.0-0.6) K/mcL Basophils # (0.0-0.2) K/mcL PT (9.4-12.1) Seconds INR APTT (26.0-36.0) Seconds Sodium (136-145) mEq/L Potassium (3.5-5.1) mEq/L Chloride (98-107) mEq/L Carbon Dioxide (23-29) mEq/L BUN (8-23) mg/dL Creatinine (0.60-1.20) mg/dL Est GFR ( Amer) (> 60) Est GFR (Non-Af Amer) (> 60) BUN/Creatinine Ratio (6-26) Glucose (70-105) mg/dL Calculated Osmolality (280-300) Lactic Acid 1.0 (0.5-2.2) mmol/L Calcium (8.6-10.3) mg/dL Total Bilirubin (0.3-1.0) mg/dL Direct Bilirubin (0.0-0.2) mg/dL Indirect Bilirubin (0.0-1.2) mg/dL AST (13-39) Units/L ALT (7-52) Units/L Alkaline Phosphatase (34-104) Units/L Serum Total Protein (6.4-8.9) g/dL Albumin (3.5-5.7) g/dL Globulin (2.4-3.5) g/dL Albumin/Globulin Ratio (1.1-2.2) Amylase (29-103) Units/L Lipase (11-82) Units/L - Radiology Data Radiology results reviewed: Yes I reviewed the patient's radiology results. Impressions Abdomen/Pelvis CT 10/14/17 12:41 IMPRESSION: 1. New small bowel loops in the midline abdomen with mucosal thickening and adjacent inflammatory changes. There is a small bowel loop in the midline lower abdomen with an adjacent fluid collection. Findings are suggestive of nonspecific infectious/inflammatory enteritis. The fluid collection may be reactive, but superimposed infected collection is not excluded. 2. Calcification within the right breast. Correlation with mammography is recommended. 3. Diverticulosis without CT evidence of diverticulitis. 4. Other findings, as above. D/ / Mike Tinoco / Mike Tinoco Interpreting Provider: Mike Tinoco
[2017-10-14 13:14] LABS: Basophils % 0.4 %; Eosinophils # 0.1 K/mcL (0.0-0.6); Eosinophils % 0.7 %; Hematocrit 41.2 % (35.3-44.9); Immature Granulocytes % 0.3 % (0-4); Lymphocytes # 1.4 K/mcL (0.6-4.6); Lymphocytes % 18.9 %; Mean Corpuscular Hemoglobin 33.5 pg (28.0-33.3); Mean Corpuscular Volume 98.6 fL (83.0-100.0); Mean Platelet Volume 11.7 fL (9.4-12.4); Monocytes # 1.3 K/mcL (0.0-1.3); Monocytes % 17.7 %; Neutrophils # 4.5 K/mcL (1.6-8.9); Platelet Count 123 K/mcL (140-400); Red Blood Count 4.18 M/mcL (3.82-4.97); Red Cell Distribution Width 13.2 % (11.5-14.5)
[2017-10-14 13:19] LABS: INR 1.2; Prothrombin Time 12.7 Seconds (9.4-12.1)
[2017-10-14 13:22] LABS: Activated Partial Thrombo Time 33.1 Seconds (26.0-36.0)
[2017-10-14 13:27] LABS: Alanine Aminotransferase 23 Units/L (7-52); Albumin 3.3 g/dL (3.5-5.7); Albumin/Globulin Ratio 1.9 (1.1-2.2); Alkaline Phosphatase 82 Units/L (34-104); Amylase 13 Units/L (29-103); Aspartate Amino Transferase 26 Units/L (13-39); BUN/Creatinine Ratio 10 (6-26); Bilirubin,Direct 0.1 mg/dL (0.0-0.2); Bilirubin,Indirect 0.3 mg/dL (0.0-1.2); Bilirubin,Total 0.4 mg/dL (0.3-1.0); Blood Urea Nitrogen 6 mg/dL (8-23); Carbon Dioxide 28 mEq/L (23-29); Chloride 108 mEq/L (98-107); Globulin 1.7 g/dL (2.4-3.5); Glucose 116 mg/dL (70-105); Lipase 25 Units/L (11-82); Osmolality,Calculated 293 (280-300); Sodium 142 mEq/L (136-145); eGFR For African Americans > 60 (> 60); eGFR For Non-African Americans > 60 (> 60)
[2017-10-14] MEDS ORDERED: Sulfamethoxazole/Trimeth DS 1 EACH TABLET PO ONE (14:07)
[2017-10-14] MEDS ORDERED: MetroNIDAZOLE 500 MG/100 ML 500 MG/100 ML BAG IVPB ONE (14:07)
[2017-10-14 14:19] LABS: Bilirubin,Urine Negative (Negative); Blood,Urine Large (Negative); Clarity,Urine Clear (Clear); Color,Urine Yellow (Yellow); Glucose,Urine (UA) Normal (Normal); Ketones,Urine Negative (Negative); Leukocyte Esterase,Urine Moderate (Negative); Nitrite,Urine Negative (Negative); Protein,Urine Negative (Neg-Trace); Specific Gravity,Urine 1.015 (1.010-1.025); Urobilinogen,Urine Normal (Normal)
[2017-10-14 14:33] LABS: Bacteria,Urine Moderate per hpf (None-Few); Mucus,Urine Few (Few); Squamous Epithelial Cell,Urine Few per lpf (None-Few)
[2017-10-14] MEDS ORDERED: *HR* HYDROcodone/Acet 5/325 mg TABLET PO PRN (17:27)
[2017-10-14] MEDS ORDERED: 0.9 % Sodium Chloride 1,000 ML IVC SCH (17:27)
[2017-10-14] MEDS ORDERED: Naloxone 0.4 MG/ML INJ IVP PRN (17:27)
[2017-10-14] MEDS: Sucralfate 1 GM TABLET PO SCH ×2 (18:08→20:57)
--- NOTE | 2017-10-14 19:28 | Internal Med History&Physical ---
Date of Encounter: 10/14/17 Time of Encounter: 19:00 Assessment and Plan (1) Enteritis Current visit: Yes Status: Acute She has been placed on clear liquid diet. IV Flagyl has been ordered. Stool will be guaiaced and checked for C. difficile. GI panel has been ordered also. (2) Hypertension Current visit: No Status: Chronic Continue amlodipine, Tenormin, Hytrin, and lisinopril Qualifiers: Hypertension type: essential hypertension Qualified Code(s): I10 - Essential (primary) hypertension (3) UTI (urinary tract infection) Current visit: No Status: Acute Will order Macrobid empirically. Qualifiers: Urinary tract infection type: site unspecified Hematuria presence: with hematuria Qualified Code(s): N39.0 - Urinary tract infection, site not specified; R31.9 - Hematuria, unspecified (4) Hypokalemia Current visit: Yes Status: Acute We will give supplement potassium and recheck labs in a.m. Internal Medicine - H&P: HPI Chief complaint: Diarrhea Admitted From: Emergency Dept Plans for Post Hospital Care: Home History of present illness: Ms. Joseph is a 81 year old female who came to emergency room stating she had continued diarrhea with stool that appeared very dark and black. She has been discharged from [facility] October 12 after admission for acute gastroenteritis. She was treated with oral Flagyl and leukocytosis had resolved. She reports she had restarted Keflex which had been ordered to be discontinued upon discharge. She also continued oral Flagyl. She was evaluated in emergency room and abdominal CT showed new small bowel loops in the midline with mucosal thickening and adjacent inflammatory changes. There was diverticulosis without CT evidence of diverticulitis. She had hypokalemia but normal WBC and differential. She was admitted to [facility] floor for ongoing care needs. She has had cholecystectomy and Shelly fundoplication surgery. She denies disorders of her liver or exocrine pancreas. Past Med Surg Social Fam HX - Past Medical History Medical history: arthritis, CVA, DVT, GERD, hypertension, other Psychiatric history: anxiety - Past Surgical History Surgical History: hysterectomy, other - Social History Smoking Status: Former smoker Smokeless Tobacco Status: No Alcohol use: occasionally Drug use: none - Family History Mother Adopted: No Living Status: Hx Family Cardiac Disorders: No Hx Family Respiratory Disorders: No Hx Family Cancer: No Hx Family GI Disorders: No Hx Family Endocrine Disorder: No Hx Family Neuromuscular Disorders: No Hx Family Neurologic Disorders: No Hx Family HEENT Disorders: No Hx Family Autoimmune Disorders: No Father Adopted: No Living Status: Internal Medicine - H&P: Meds Flonase 50 mcg PO DAILY PRN 09/25/16 [History] Lisinopril [Zestril] 40 mg PO DAILY #60 tablet 10/09/16 [Rx] Atenolol [Tenormin] 50 mg PO BID 02/10/17 [History] Donepezil HCl [Aricept] 5 mg PO HS 02/10/17 [History] Lovastatin 40 mg PO HS 02/10/17 [History] Omeprazole 40 mg PO BID 02/10/17 [History] Sucralfate [Carafate] 1 gm PO QIDAC #28 tablet 02/10/17 [Rx] amLODIPine [Norvasc] 5 mg PO DAILY 04/26/17 [History] Melatonin 5 mg PO HS 10/07/17 [History] Terazosin HCl 10 mg PO HS 10/07/17 [History] metroNIDAZOLE [Flagyl] 500 mg PO TID #21 tablet 10/07/17 [Rx] HYDROcodone/Acet 5/325 mg [[place] 5-325 mg] 1 tab PO Q6HR PRN 2 Days #6 tablet [Rx] Cephalexin [Keflex] 500 mg PO QID 10/14/17 [History] 3 Allergy/AdvReac Type Severity Reaction Status Date / Time aloe vera Allergy Rash Verified 10/14/17 12:28 ciprofloxacin Allergy See Verified 10/14/17 12:28 Comments codeine Allergy Rash Verified 10/14/17 12:28 Influenza Virus Vaccines Allergy See Verified 10/14/17 12:28 Comments Penicillins [PCN] Allergy Rash Verified 10/14/17 12:28 Sulfa (Sulfonamide AdvReac See Verified 10/14/17 16:12 Antibiotics) Comments All Systems PM: A 10-system review of systems was performed and is negative for pertinent findings except as documented above in the HPI. Review of systems: Review of systems from her 10/08/2017 hospitalization reviewed and revised as below. Gen.: Her weight has decreased from 81.601 kg on 10/12/2016 to 68.492 kg on admission. Cardiovascular: She had right leg DVT September 2016 and was placed on Coumadin therapy. She has a history of hypertension but denies PA heart failure or angina. She thinks she had an exercise stress test approximately 2011. Respiratory: She smoked from approximately age [age] never exceeding one third pack per day. She denies chronic lung disease GI: As per history of present illness : She denies hematuria dysuria or kidney stones Neurologic: She denies large distribution strokes or seizures. CT scan done October 2016 showed old left thalamus lacunar infarct. Endocrine: She has hyperlipidemia but denies diabetes or thyroid disease Hematology/oncology: She has history of anemia which has resolved. She denies internal malignancies or other blood disorders. Psychiatric: She has had anxiety and depression in the past but has not received treatment recently. 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 She denies gout or other bone joint or muscle disorders. - Constitutional Vitals: Temp Pulse Resp BP Pulse Ox 98.8 F 82 16 151/64 99 10/14/17 18:36 10/14/17 18:36 10/14/17 18:36 10/14/17 18:36 10/14/17 18:36 Exam: Gen.: She is a well-developed well-nourished female resting comfortably in bed who appears in minimal distress at present time HEENT: Head is atraumatic and normocephalic. Eyes: EOMI. There is no scleral icterus. Mouth: Mucosa is moist. Neck: Supple and nontender. There is no thyromegaly or adenopathy noted. Heart: Irregularly irregular without murmurs or gallops Lungs: No wheezes or crackles are heard. Abdomen: Soft and minimally tender to palpation. Bowel sounds are present. Extremities: There is no cyanosis edema or clubbing noted. Dorsalis pedis and posttibial pulses are 1-2 over 2 bilaterally Neurologic: Mental status: She is talkative and a good historian. Cranial nerves: Smile is symmetric. Forehead wrinkles bilaterally. Tongue protrudes midline. EOMI. Motor: There is no pronator drift. Cerebellar: Finger to nose is intact bilaterally. Skin: Warm and dry Internal Med - H&P Results - Labs CBC & Chem 7: 10/14/17 13:02 10/14/17 13:02
[2017-10-14] MEDS: Melatonin 3 MG TABLET PO SCH (21:03)
[2017-10-14] MEDS: MetroNIDAZOLE 500 MG/100 ML 500 MG/100 ML BAG IVPB SCH (21:04)
[2017-10-14] MEDS: 0.45 % Sodium Chloride w/KCl 20 MEQ/1,000 ML MLS IVC SCH (21:05)
[2017-10-14] MEDS: Acetaminophen 325 MG TABLET PO PRN (22:50)
[2017-10-15] MEDS: *HR* HYDROcodone/Acet 5/325 mg TABLET PO PRN ×4 (02:29→21:46)
[2017-10-15] MEDS: MetroNIDAZOLE 500 MG/100 ML 500 MG/100 ML BAG IVPB SCH ×3 (05:39→21:48)
[2017-10-15] MEDS: Acetaminophen 325 MG TABLET PO PRN (05:41)
[2017-10-15 06:07] LABS: BUN/Creatinine Ratio 7 (6-26); Blood Urea Nitrogen 4 mg/dL (8-23); Calcium 8.4 mg/dL (8.6-10.3); Carbon Dioxide 24 mEq/L (23-29); Chloride 112 mEq/L (98-107); Glucose 95 mg/dL (70-105); Osmolality,Calculated 287 (280-300); Potassium 3.4 mEq/L (3.5-5.1); Sodium 140 mEq/L (136-145); eGFR For African Americans > 60 (> 60); eGFR For Non-African Americans > 60 (> 60)
[2017-10-15] MEDS: Sucralfate 1 GM TABLET PO SCH ×2 (09:52→12:21)
[2017-10-15] MEDS: Nitrofurantoin (BID) 100 MG CAPSULE PO SCH ×2 (09:52→16:59)
[2017-10-15] MEDS: amLODIPine 5 MG TABLET PO SCH (11:36)
[2017-10-15] MEDS: Lisinopril 20 MG TABLET PO SCH (11:36)
--- NOTE | 2017-10-15 12:25 | Internal Med Progress Note ---
Date of Encounter: 10/15/17 Time of Encounter: 12:15 - Assessment and plan (1) Enteritis Current Visit: Yes Status: Acute Assessment and plan: October 15. Continue clear liquid diet. Stool for C. difficile and GI panel pending. Continue IV Flagyl for now. (2) Hypertension Current Visit: No Status: Chronic Assessment and plan: October 15. Pressure was borderline low. Antihypertensive medication has been held for now. Qualifiers: Hypertension type: essential hypertension Qualified Code(s): I10 - Essential (primary) hypertension (3) UTI (urinary tract infection) Current Visit: No Status: Acute Assessment and plan: October 15. Continue Macrobid Qualifiers: Urinary tract infection type: site unspecified Hematuria presence: with hematuria Qualified Code(s): N39.0 - Urinary tract infection, site not specified; R31.9 - Hematuria, unspecified (4) Hypokalemia Current Visit: Yes Status: Acute Assessment and plan: October 15. Potassium level improved to 3.4. Continue present regimen. - Subjective Interval history: October 15. She reports she does not feel as well today. She has some abdominal discomfort as before. She had a single bowel movement since last evening. - Constitutional Vitals: Temp Pulse Resp BP Pulse Ox 98.3 F 62 16 134/80 95 10/15/17 10:35 10/15/17 10:35 10/15/17 10:35 10/15/17 10:35 10/15/17 10:35 Exam: She is resting comfortably in bed and appears in no significant distress. Her affect is overall bright and cheerful. I reviewed her medications and lab results. I discussed her situation with her son by phone. Internal Medicine: Result - Labs CBC & Chem 7: 10/14/17 13:02 10/15/17 05:38 Labs: BMP 10/15/17 05:38 Sodium 140 Potassium 3.4 L Chloride 112 H Carbon Dioxide 24 BUN 4 L Creatinine 0.54 L Glucose 95 Calcium 8.4 L - ABG Interpretation ABG results: PT/INR, D-dimer PT 12.7 Seconds (9.4-12.1) H 10/14/17 13:02 Consult Discharge Plan - Plan Referrals: Jeffery Pastor MD [Primary Care Provider] - 1 week
[2017-10-15] MEDS: 0.45 % Sodium Chloride w/KCl 20 MEQ/1,000 ML MLS IVC SCH ×2 (13:30→21:47)
[2017-10-15] MEDS: Melatonin 3 MG TABLET PO SCH (21:46)
[2017-10-16] MEDS: *HR* HYDROcodone/Acet 5/325 mg TABLET PO PRN ×4 (05:58→21:47)
[2017-10-16] MEDS: MetroNIDAZOLE 500 MG/100 ML 500 MG/100 ML BAG IVPB SCH (05:59)
[2017-10-16 07:12] LABS: Basophils % 0.2 %; Eosinophils # 0.1 K/mcL (0.0-0.6); Eosinophils % 2.7 %; Hematocrit 38.8 % (35.3-44.9); Immature Granulocytes % 0.5 % (0-4); Lymphocytes # 1.6 K/mcL (0.6-4.6); Lymphocytes % 36.5 %; Mean Corpuscular HGB Conc 33.5 g/dL (31.6-35.5); Mean Corpuscular Hemoglobin 33.6 pg (28.0-33.3); Mean Corpuscular Volume 100.3 fL (83.0-100.0); Mean Platelet Volume 11.7 fL (9.4-12.4); Monocytes # 0.7 K/mcL (0.0-1.3); Platelet Count 134 K/mcL (140-400); Red Blood Count 3.87 M/mcL (3.82-4.97); Red Cell Distribution Width 13.7 % (11.5-14.5); Segmented Neutrophils % 44.1 %
[2017-10-16 07:48] LABS: BUN/Creatinine Ratio 6 (6-26); Blood Urea Nitrogen 3 mg/dL (8-23); Calcium 8.8 mg/dL (8.6-10.3); Carbon Dioxide 23 mEq/L (23-29); Chloride 110 mEq/L (98-107); Glucose 95 mg/dL (70-105); Osmolality,Calculated 286 (280-300); Sodium 140 mEq/L (136-145); eGFR For African Americans > 60 (> 60); eGFR For Non-African Americans > 60 (> 60)
[2017-10-16] MEDS: Lisinopril 20 MG TABLET PO SCH (09:57)
[2017-10-16] MEDS: amLODIPine 5 MG TABLET PO SCH (09:58)
[2017-10-16] MEDS: Nitrofurantoin (BID) 100 MG CAPSULE PO SCH (09:58)
[2017-10-16] MEDS ORDERED: metroNIDAZOLE 500 MG TABLET PO SCH (14:00)
--- NOTE | 2017-10-16 15:14 | Internal Med Progress Note ---
Date of Encounter: 10/16/17 Time of Encounter: 15:05 - Assessment and plan (1) Enteritis Current Visit: Yes Status: Acute Assessment and plan: October 15. Continue clear liquid diet. Stool for C. difficile and GI panel pending. Continue IV Flagyl for now. October 16. Stool negative for C. difficile. GI panel pending. Advance diet to full liquid. Discontinue IV Flagyl. (2) Hypertension Current Visit: No Status: Chronic Assessment and plan: October 15. Pressure was borderline low. Antihypertensive medication has been held for now. Qualifiers: Hypertension type: essential hypertension Qualified Code(s): I10 - Essential (primary) hypertension (3) UTI (urinary tract infection) Current Visit: No Status: Acute Assessment and plan: October 15. Continue Macrobid October 16. Urine culture showed mixed dandy. Will discontinue Macrobid. Qualifiers: Urinary tract infection type: site unspecified Hematuria presence: with hematuria Qualified Code(s): N39.0 - Urinary tract infection, site not specified; R31.9 - Hematuria, unspecified (4) Hypokalemia Current Visit: Yes Status: Acute Assessment and plan: October 15. Potassium level improved to 3.4. Continue present regimen. October 16. Potassium level normal at 4.0. Continue present regimen. - Subjective Interval history: October 15. She reports she does not feel as well today. She has some abdominal discomfort as before. She had a single bowel movement since last evening. October 16. She has no new complaints. She reports she had 3 loose stools earlier today but they are no longer black. - Constitutional Vitals: Temp Pulse Resp BP Pulse Ox 98.4 F 62 17 110/59 95 10/16/17 10:50 10/16/17 10:50 10/16/17 10:50 10/16/17 10:50 10/16/17 10:50 Exam: Bowel sounds are present but diminished. Abdomen has mild tenderness to palpation. Affect is overall bright and cheerful. I reviewed her medications and lab results. Internal Medicine: Result - Labs CBC & Chem 7: 10/16/17 06:10 10/16/17 06:10 Labs: Short CBC 10/16/17 Range/Units 06:10 WBC 4.4 (4.3-11.1) K/mcL Hgb 13.0 (11.5-15.4) g/dL Hct 38.8 (35.3-44.9) % Plt Count 134 L (140-400) K/mcL Neutrophils # 2.0 (1.6-8.9) K/mcL BMP 10/16/17 06:10 Sodium 140 Potassium 4.0 Chloride 110 H Carbon Dioxide 23 BUN 3 L Creatinine 0.48 L Glucose 95 Calcium 8.8 - ABG Interpretation ABG results: PT/INR, D-dimer PT 12.7 Seconds (9.4-12.1) H 10/14/17 13:02 Consult Discharge Plan - Plan Referrals: Jeffery Pastor MD [Primary Care Provider] - 1 week
[2017-10-16] MEDS ORDERED: GI Cocktail 40 ML EACH PO ONE (17:49)
[2017-10-16] MEDS: 0.45 % Sodium Chloride w/KCl 20 MEQ/1,000 ML MLS IVC SCH (19:11)
[2017-10-16] MEDS: Melatonin 3 MG TABLET PO SCH (21:48)
[2017-10-17] MEDS: *HR* HYDROcodone/Acet 5/325 mg TABLET PO PRN ×5 (01:48→21:44)
[2017-10-17] MEDS: Lisinopril 20 MG TABLET PO SCH (07:52)
[2017-10-17] MEDS ORDERED: Mag Hydrox/Al Hydrox/Simeth 30 ML UDC PO PRN (14:01)
--- NOTE | 2017-10-17 14:02 | Internal Med Progress Note ---
Date of Encounter: 10/17/17 Time of Encounter: 13:50 - Assessment and plan (1) Enteritis Current Visit: Yes Status: Acute Assessment and plan: October 15. Continue clear liquid diet. Stool for C. difficile and GI panel pending. Continue IV Flagyl for now. October 16. Stool negative for C. difficile. GI panel pending. Advance diet to full liquid. Discontinue IV Flagyl. (2) Hypertension Current Visit: No Status: Chronic Assessment and plan: October 15. Pressure was borderline low. Antihypertensive medication has been held for now. Qualifiers: Hypertension type: essential hypertension Qualified Code(s): I10 - Essential (primary) hypertension (3) UTI (urinary tract infection) Current Visit: No Status: Acute Assessment and plan: October 15. Continue Macrobid October 16. Urine culture showed mixed dandy. Will discontinue Macrobid. Qualifiers: Urinary tract infection type: site unspecified Hematuria presence: with hematuria Qualified Code(s): N39.0 - Urinary tract infection, site not specified; R31.9 - Hematuria, unspecified (4) Hypokalemia Current Visit: Yes Status: Acute Assessment and plan: October 15. Potassium level improved to 3.4. Continue present regimen. October 16. Potassium level normal at 4.0. Continue present regimen. October 17. Recheck labs in a.m. - Subjective Interval history: October 15. She reports she does not feel as well today. She has some abdominal discomfort as before. She had a single bowel movement since last evening. October 16. She has no new complaints. She reports she had 3 loose stools earlier today but they are no longer black. October 17. She states GI cocktail improved her abdominal pain yesterday. She reports a loose stool within the last hour but it was not dark. - Constitutional Vitals: Temp Pulse Resp BP Pulse Ox 98.4 F 67 18 131/67 97 10/17/17 07:13 10/17/17 07:13 10/17/17 07:13 10/17/17 07:13 10/17/17 07:13 Exam: She is resting comfortably in bed and appears in no acute distress. Her affect is bright and cheerful overall. I reviewed her medications and lab results. Internal Medicine: Result - Labs CBC & Chem 7: 10/16/17 06:10 10/16/17 06:10 - ABG Interpretation ABG results: PT/INR, D-dimer PT 12.7 Seconds (9.4-12.1) H 10/14/17 13:02 Consult Discharge Plan - Plan Referrals: Jeffery Pastor MD [Primary Care Provider] - 1 week
[2017-10-17] MEDS: Melatonin 3 MG TABLET PO SCH (21:43)
[2017-10-18] MEDS: *HR* HYDROcodone/Acet 5/325 mg TABLET PO PRN ×5 (05:38→21:42)
[2017-10-18 06:15] LABS: Basophils % 0.3 %; Eosinophils # 0.1 K/mcL (0.0-0.6); Eosinophils % 0.8 %; Hematocrit 40.8 % (35.3-44.9); Hemoglobin 13.3 g/dL (11.5-15.4); Immature Granulocytes % 0.2 % (0-4); Lymphocytes # 1.7 K/mcL (0.6-4.6); Mean Corpuscular HGB Conc 32.6 g/dL (31.6-35.5); Mean Corpuscular Volume 101.2 fL (83.0-100.0); Mean Platelet Volume 11.8 fL (9.4-12.4); Monocytes # 0.9 K/mcL (0.0-1.3); Neutrophils # 3.6 K/mcL (1.6-8.9); Platelet Count 146 K/mcL (140-400); Red Blood Count 4.03 M/mcL (3.82-4.97); Red Cell Distribution Width 13.8 % (11.5-14.5); Segmented Neutrophils % 57.7 %
[2017-10-18 06:35] LABS: BUN/Creatinine Ratio 5 (6-26); Blood Urea Nitrogen 3 mg/dL (8-23); Carbon Dioxide 27 mEq/L (23-29); Chloride 109 mEq/L (98-107); Glucose 92 mg/dL (70-105); Osmolality,Calculated 292 (280-300); Potassium 4.1 mEq/L (3.5-5.1); Sodium 143 mEq/L (136-145); eGFR For African Americans > 60 (> 60); eGFR For Non-African Americans > 60 (> 60)
[2017-10-18] MEDS: Lisinopril 20 MG TABLET PO SCH (08:41)
[2017-10-18 10:27] LABS: Adenovirus F 40/41 PCR Not detected (Not detect); Astrovirus PCR Not detected (Not detect); C.difficile Toxin A/B by PCR Not detected (Not detect); Campylobacter by PCR Not detected (Not detect); Cryptosporidium by PCR Not detected (Not detect); Cyclospora cayetanensis PCR Not detected (Not detect); E. coli O157 by PCR Not detected (Not detect); Entamoeba histolytica PCR Not detected (Not detect); Enteroaggregative E.coli(EAEC) Not detected (Not detect); Enteropathogenic E.coli(EPEC) Not detected (Not detect); Enterotoxigenic E.coli (ETEC) Not detected (Not detect); Giardia lamblia PCR Not detected (Not detect); Norovirus GI/GII PCR Not detected (Not detect); Plesiomonas shigelloides PCR Not detected (Not detect); Rotavirus A PCR Not detected (Not detect); Salmonella PCR Not detected (Not detect); Sapovirus PCR Not detected (Not detect); Shig/EnteroinvasiveE coli EIEC Not detected (Not detect); Shigalike tox-prod E coli STEC Not detected (Not detect); Vibrio PCR Not detected (Not detect); Vibrio cholerae PCR Not detected (Not detect); Yersinia enterocolitica PCR Not detected (Not detect)
--- NOTE | 2017-10-18 15:19 | Internal Med Progress Note ---
Date of Encounter: 10/18/17 Time of Encounter: 15:10 - Assessment and plan (1) Enteritis Current Visit: Yes Status: Acute Assessment and plan: October 15. Continue clear liquid diet. Stool for C. difficile and GI panel pending. Continue IV Flagyl for now. October 16. Stool negative for C. difficile. GI panel pending. Advance diet to full liquid. Discontinue IV Flagyl. October 18. Clinically resolved. Will not workup or treat further. Awaiting insurance approval for swing bed for therapy (2) Hypertension Current Visit: No Status: Chronic Assessment and plan: October 15. Pressure was borderline low. Antihypertensive medication has been held for now. October 18. Continue Tenormin, Zestril, and Hytrin. Qualifiers: Hypertension type: essential hypertension Qualified Code(s): I10 - Essential (primary) hypertension (3) UTI (urinary tract infection) Current Visit: No Status: Acute Assessment and plan: October 15. Continue Macrobid October 16. Urine culture showed mixed dandy. Will discontinue Macrobid. Qualifiers: Urinary tract infection type: site unspecified Hematuria presence: with hematuria Qualified Code(s): N39.0 - Urinary tract infection, site not specified; R31.9 - Hematuria, unspecified (4) Hypokalemia Current Visit: Yes Status: Acute Assessment and plan: October 15. Potassium level improved to 3.4. Continue present regimen. October 16. Potassium level normal at 4.0. Continue present regimen. October 17. Recheck labs in a.m. - Subjective Interval history: October 15. She reports she does not feel as well today. She has some abdominal discomfort as before. She had a single bowel movement since last evening. October 16. She has no new complaints. She reports she had 3 loose stools earlier today but they are no longer black. October 17. She states GI cocktail improved her abdominal pain yesterday. She reports a loose stool within the last hour but it was not dark. October 18. She has no new complaints. She now states that she does not have diarrhea and that what she actually was calling diarrhea over the past few days was mostly "gas". - Constitutional Vitals: Temp Pulse Resp BP Pulse Ox 98.5 F 59 17 132/63 96 10/18/17 11:00 10/18/17 11:00 10/18/17 11:00 10/18/17 11:00 10/18/17 11:00 Exam: She is resting comfortably in bed and appears in no acute distress. Her affect is bright and cheerful. I reviewed her medications and lab results. I note her GI panel returned negative Internal Medicine: Result - Labs CBC & Chem 7: 10/18/17 05:18 10/18/17 05:18 Labs: Short CBC 10/18/17 Range/Units 05:18 WBC 6.2 (4.3-11.1) K/mcL Hgb 13.3 (11.5-15.4) g/dL Hct 40.8 (35.3-44.9) % Plt Count 146 (140-400) K/mcL Neutrophils # 3.6 (1.6-8.9) K/mcL BMP 10/18/17 05:18 Sodium 143 Potassium 4.1 Chloride 109 H Carbon Dioxide 27 BUN 3 L Creatinine 0.56 L Glucose 92 Calcium 9.0 - ABG Interpretation ABG results: PT/INR, D-dimer PT 12.7 Seconds (9.4-12.1) H 10/14/17 13:02 Consult Discharge Plan - Plan Referrals: Jeffery Pastor MD [Primary Care Provider] - 1 week
[2017-10-18] MEDS: Melatonin 3 MG TABLET PO SCH (21:42)
[2017-10-19] MEDS: *HR* HYDROcodone/Acet 5/325 mg TABLET PO PRN ×5 (02:46→20:34)
[2017-10-19] MEDS: Lisinopril 20 MG TABLET PO SCH (07:37)
--- NOTE | 2017-10-19 17:07 | Internal Med Progress Note ---
Date of Encounter: 10/19/17 Time of Encounter: 17:00 - Assessment and plan (1) Enteritis Current Visit: Yes Status: Acute Assessment and plan: October 15. Continue clear liquid diet. Stool for C. difficile and GI panel pending. Continue IV Flagyl for now. October 16. Stool negative for C. difficile. GI panel pending. Advance diet to full liquid. Discontinue IV Flagyl. October 18. Clinically resolved. Will not workup or treat further. Awaiting insurance approval for swing bed for therapy (2) Hypertension Current Visit: No Status: Chronic Assessment and plan: October 15. Pressure was borderline low. Antihypertensive medication has been held for now. October 18. Continue Tenormin, Zestril, and Hytrin. Qualifiers: Hypertension type: essential hypertension Qualified Code(s): I10 - Essential (primary) hypertension (3) UTI (urinary tract infection) Current Visit: No Status: Acute Assessment and plan: October 15. Continue Macrobid October 16. Urine culture showed mixed dandy. Will discontinue Macrobid. Qualifiers: Urinary tract infection type: site unspecified Hematuria presence: with hematuria Qualified Code(s): N39.0 - Urinary tract infection, site not specified; R31.9 - Hematuria, unspecified (4) Hypokalemia Current Visit: Yes Status: Acute Assessment and plan: October 15. Potassium level improved to 3.4. Continue present regimen. October 16. Potassium level normal at 4.0. Continue present regimen. October 17. Recheck labs in a.m. - Subjective Interval history: October 15. She reports she does not feel as well today. She has some abdominal discomfort as before. She had a single bowel movement since last evening. October 16. She has no new complaints. She reports she had 3 loose stools earlier today but they are no longer black. October 17. She states GI cocktail improved her abdominal pain yesterday. She reports a loose stool within the last hour but it was not dark. October 18. She has no new complaints. She now states that she does not have diarrhea and that what she actually was calling diarrhea over the past few days was mostly "gas". October 19. She states her abdomen has discomfort but she reports this is a chronic problem. She states she has not had a bowel movement today and feels "constipated". - Constitutional Vitals: Temp Pulse Resp BP Pulse Ox 98.0 F 91 17 132/85 97 10/19/17 15:52 10/19/17 15:52 10/19/17 15:52 10/19/17 15:52 10/19/17 15:52 Exam: She is sitting in a chair at bedside resting comfortably. She appears in no acute distress. Her affect is bright and cheerful. I reviewed her medications and lab results. I told her no word had been received from insurance about swing bed approval and that she would be discharged home tomorrow if she has denied swing bed stay. Internal Medicine: Result - Labs CBC & Chem 7: 10/18/17 05:18 10/18/17 05:18 - ABG Interpretation ABG results: PT/INR, D-dimer PT 12.7 Seconds (9.4-12.1) H 10/14/17 13:02 Consult Discharge Plan - Plan Referrals: Jeffery Pastor MD [Primary Care Provider] - 1 week
[2017-10-19] MEDS: Melatonin 3 MG TABLET PO SCH (19:34)
[2017-10-20] MEDS: *HR* HYDROcodone/Acet 5/325 mg TABLET PO PRN ×4 (01:20→17:51)
[2017-10-20] MEDS: Lisinopril 20 MG TABLET PO SCH (08:44)
--- NOTE | 2017-10-20 17:10 | Internal Med Progress Note ---
Date of Encounter: 10/20/17 Time of Encounter: 17:00 - Assessment and plan (1) Enteritis Current Visit: Yes Status: Acute Assessment and plan: October 15. Continue clear liquid diet. Stool for C. difficile and GI panel pending. Continue IV Flagyl for now. October 16. Stool negative for C. difficile. GI panel pending. Advance diet to full liquid. Discontinue IV Flagyl. October 18. Clinically resolved. Will not workup or treat further. Awaiting insurance approval for swing bed for therapy (2) Hypertension Current Visit: No Status: Chronic Assessment and plan: October 15. Pressure was borderline low. Antihypertensive medication has been held for now. October 18. Continue Tenormin, Zestril, and Hytrin. Qualifiers: Hypertension type: essential hypertension Qualified Code(s): I10 - Essential (primary) hypertension (3) UTI (urinary tract infection) Current Visit: No Status: Acute Assessment and plan: October 15. Continue Macrobid October 16. Urine culture showed mixed dandy. Will discontinue Macrobid. Qualifiers: Urinary tract infection type: site unspecified Hematuria presence: with hematuria Qualified Code(s): N39.0 - Urinary tract infection, site not specified; R31.9 - Hematuria, unspecified (4) Hypokalemia Current Visit: Yes Status: Acute Assessment and plan: October 15. Potassium level improved to 3.4. Continue present regimen. October 16. Potassium level normal at 4.0. Continue present regimen. October 17. Recheck labs in a.m. October 20. Recheck labs in a.m. - Subjective Interval history: October 15. She reports she does not feel as well today. She has some abdominal discomfort as before. She had a single bowel movement since last evening. October 16. She has no new complaints. She reports she had 3 loose stools earlier today but they are no longer black. October 17. She states GI cocktail improved her abdominal pain yesterday. She reports a loose stool within the last hour but it was not dark. October 18. She has no new complaints. She now states that she does not have diarrhea and that what she actually was calling diarrhea over the past few days was mostly "gas". October 19. She states her abdomen has discomfort but she reports this is a chronic problem. She states she has not had a bowel movement today and feels "constipated". October 20. She has no new complaints. She feels her strength is improved and she is not certain she even needs ongoing therapy in swing bed. - Constitutional Vitals: Temp Pulse Resp BP Pulse Ox 98.8 F 92 18 116/76 93 10/20/17 01:21 10/20/17 01:21 10/20/17 01:21 10/20/17 01:21 10/20/17 01:21 Exam: She is resting comfortably in bed and appears in no acute distress. Her affect is bright and cheerful. I reviewed her medications and lab results. Internal Medicine: Result - Labs CBC & Chem 7: 10/18/17 05:18 10/18/17 05:18 - ABG Interpretation ABG results: PT/INR, D-dimer PT 12.7 Seconds (9.4-12.1) H 10/14/17 13:02 - VTE Documentation of Mechanical Device: Graduated compression elastic hosiery Consult Discharge Plan - Plan Referrals: Jeffery Pastor MD [Primary Care Provider] - 1 week
[2017-10-20] MEDS: Melatonin 3 MG TABLET PO SCH (20:26)
[2017-10-21] MEDS: *HR* HYDROcodone/Acet 5/325 mg TABLET PO PRN ×2 (00:33→07:01)
[2017-10-21 06:21] LABS: BUN/Creatinine Ratio 13 (6-26); Blood Urea Nitrogen 7 mg/dL (8-23); Calcium 8.6 mg/dL (8.6-10.3); Carbon Dioxide 26 mEq/L (23-29); Chloride 110 mEq/L (98-107); Glucose 90 mg/dL (70-105); Osmolality,Calculated 290 (280-300); Sodium 141 mEq/L (136-145); eGFR For African Americans > 60 (> 60); eGFR For Non-African Americans > 60 (> 60)
[2017-10-21 07:49] VITALS: BP 124/80
--- NOTE | 2017-10-21 10:46 | Discharge Summary ---
Date of Encounter: 10/21/17 Time of Encounter: 10:37 - Discharge Diagnosis (1) Enteritis Priority: Primary Status: Resolved (2) Hypertension Priority: Secondary Status: Chronic Qualifiers: Hypertension type: essential hypertension Qualified Code(s): I10 - Essential (primary) hypertension (3) UTI (urinary tract infection) Priority: Secondary Status: Resolved Qualifiers: Urinary tract infection type: site unspecified Hematuria presence: with hematuria Qualified Code(s): N39.0 - Urinary tract infection, site not specified; R31.9 - Hematuria, unspecified (4) Hypokalemia Priority: Secondary Status: Resolved - Discharge Medications Prescriptions: HYDROcodone/Acet 5/325 mg [[place] 5-325 mg] 1 tab PO Q6HR PRN 2 Days #6 tablet PRN Reason: Moderate Pain Potassium Chloride 20 meq PO DAILY #7 tab.er.prt Home Medications: Flonase 50 mcg PO DAILY PRN 09/25/16 [History] Lisinopril [Zestril] 40 mg PO DAILY #60 tablet 10/09/16 [Rx] Donepezil HCl [Aricept] 5 mg PO HS 02/10/17 [History] Melatonin 5 mg PO HS 10/07/17 [History] Terazosin HCl 10 mg PO HS 10/07/17 [History] Atenolol [Tenormin] 25 mg PO BID #0 10/21/17 [Rx] HYDROcodone/Acet 5/325 mg [[place] 5-325 mg] 1 tab PO Q6HR PRN 2 Days #6 tablet [Rx] Potassium Chloride 20 meq PO DAILY #7 tab.er.prt 10/21/17 [Rx] Allergies/Adverse Reactions: 3 Allergy/AdvReac Type Severity Reaction Status Date / Time aloe vera Allergy Rash Verified 10/14/17 12:28 ciprofloxacin Allergy See Verified 10/14/17 12:28 Comments codeine Allergy Rash Verified 10/14/17 12:28 Influenza Virus Vaccines Allergy See Verified 10/14/17 12:28 Comments Penicillins [PCN] Allergy Rash Verified 10/14/17 12:28 Sulfa (Sulfonamide AdvReac See Verified 10/14/17 16:12 Antibiotics) Comments Date of admission: 10/14/17 16:19 Primary care physician: Jeffery Pastor MD Consults: 10/15/17 16:14 Consult to Occupational Therapy [CONS] Routine Comment: Evaluate, develop and implement POC Reason for Consult: Weakness Consult to Physical Therapy [CONS] Routine Comment: Evaluate, develop and implement POC Reason for Consult: Weakness - Patient Status Disposition: Home, Self-Care Condition: Fair Functional capacity at discharge: uses cane/walker Overall status at discharge: patient is progressing back to baseline - Discharge Instructions Follow Up With: Jeffery Pastor MD [Primary Care Provider] - 1 week - Diet and Activity Activity: as per physical therapy, resume usual activities as tolerated Diet: advance to your usual diet Hospital course: Ms. Joseph is a 81 year old female who came to emergency room stating she had continued diarrhea with stool that appeared very dark and black. She has been discharged from [facility] October 12 after admission for acute gastroenteritis. She was treated with oral Flagyl and leukocytosis had resolved. She reports she had restarted Keflex which had been ordered to be discontinued upon discharge. She also continued oral Flagyl. She was evaluated in emergency room and abdominal CT showed new small bowel loops in the midline with mucosal thickening and adjacent inflammatory changes. There was diverticulosis without CT evidence of diverticulitis. She had hypokalemia but normal WBC and differential. She was admitted to [facility] floor for ongoing care needs. Initial orders were written by the emergency room physician. I saw her on October 14 and performed the history and physical. She was started on IV Flagyl and given a clear liquid diet. Stool was guaiac positive. C. difficile test and GI panel returned negative. She had gradual clinical improvement and was able to tolerate regular diet by day of discharge. She remained afebrile during her hospital stay. Amlodipine was discontinued and Tenormin decreased 25 mg twice a day. Hytrin and lisinopril were continued as at home. Her blood pressure remained stable. She will remain on this regimen at home. She was given Macrobid empirically for 3 days for possible UTI. Her symptoms resolved and did not recur. Supplemental potassium was given and hypokalemia resolved. She will remain on potassium supplement for 1 week after discharge. Her PCP can monitor this. She initially requested to stay in swing bed for therapy. There was significant delay in her insurance evaluating her request. On October 21 she decided she did not want to wait any longer and felt stable for discharge home. She had received PT and OT intervention during her observation stay. She will follow with her PCP Dr. Jeffery Pastor within 1 week. - Time Spent with Patient Total time spent providing and/or coordinating discharge services: - Constitutional Vitals: Temp Pulse Resp BP Pulse Ox 99.0 F 79 12 124/80 95 10/21/17 07:02 10/21/17 07:02 10/21/17 07:02 10/21/17 07:02 10/21/17 07:02 - VTE Documentation of Mechanical Device: Graduated compression elastic hosiery
[2017-10-21] MEDS: Lisinopril 20 MG TABLET PO SCH (10:53)
--- NOTE | 2017-10-25 10:10 | Physician Discharge Referral ---
Home Health/Hosp Referral Info Transfer to: Home Health Attending Provider: Rex Provider in Charge Post Discharge: PCP (Jeffery Pastor M.D.) - Diagnosis (1) Enteritis Priority: Primary Status: Resolved (2) Hypertension Priority: Secondary Status: Chronic (3) UTI (urinary tract infection) Priority: Secondary Status: Resolved (4) Hypokalemia Priority: Secondary Status: Resolved - Respiratory Orders Smoking Cessation: Smoking cessation has been advised. For more information, call the [place] Tobacco Quit Line at 8-623-DMDT-NOW. - Activity Activity Orders: Ambulate - Services Needed Following services are medically necessary services: Nursing, Home Health Aide, Physical Therapy, Occupational Therapy - Transfer Medications Prescriptions: HYDROcodone/Acet 5/325 mg [[place] 5-325 mg] 1 tab PO Q6HR PRN 2 Days #6 tablet PRN Reason: Moderate Pain Potassium Chloride 20 meq PO DAILY #7 tab.er.prt Home Medications: Flonase 50 mcg PO DAILY PRN 09/25/16 [History] Lisinopril [Zestril] 40 mg PO DAILY #60 tablet 10/09/16 [Rx] Donepezil HCl [Aricept] 5 mg PO HS 02/10/17 [History] Melatonin 5 mg PO HS 10/07/17 [History] Terazosin HCl 10 mg PO HS 10/07/17 [History] Atenolol [Tenormin] 25 mg PO BID #0 10/21/17 [Rx] HYDROcodone/Acet 5/325 mg [[place] 5-325 mg] 1 tab PO Q6HR PRN 2 Days #6 tablet [Rx] Potassium Chloride 20 meq PO DAILY #7 tab.er.prt 10/21/17 [Rx] Allergies/Adverse Reactions: 3 Allergy/AdvReac Type Severity Reaction Status Date / Time aloe vera Allergy Rash Verified 10/14/17 12:28 ciprofloxacin Allergy See Verified 10/14/17 12:28 Comments codeine Allergy Rash Verified 10/14/17 12:28 Influenza Virus Vaccines Allergy See Verified 10/14/17 12:28 Comments Penicillins [PCN] Allergy Rash Verified 10/14/17 12:28 Sulfa (Sulfonamide AdvReac See Verified 10/14/17 16:12 Antibiotics) Comments Certification: Further, I certify that my clinical findings support that this patient is homebound (i.e. absences from home require considerable and taxing effort and are for medical reasons or restoration services or infrequently or short duration when for other reasons) because: Homebound Reason: Leaving home requires considerable and taxing effort due to condition (Weakness, DJD, gastroenteritis) Attestation: My signature below is to certify that this patient is under my care and that I, or nurse practitioner, or a physician's butcher assistant working with me, has a face-to -face encounter with this patient.
== END 2017-10-21 12:35 | disposition home or self-care (01) ==
LOC: EMEROOPIK 12:26 → INPPIK 12:26
PROVIDERS: ADMIT Internal Medicine; ATTEND Internal Medicine